=== PATIENT | male | born 1980 | race Caucasian/White ===

== ENCOUNTER → 2018-03-02 12:36 | Outpatient (CLI) | payer OTHER, SELFPAY ==
--- NOTE | 2018-03-02 | DI.US.S_ITS ---
PROCEDURE: US ABDOMEN COMPLETE INDICATIONS: Abdominal pain TECHNIQUE: Real-time scanning was performed of the abdominal and retroperitoneal organs, with image documentation. COMPARISON: None. FINDINGS: Liver: The liver is measuring up in the upper limits of normal for size and demonstrates moderately increased echogenicity when compared to the right kidney. This does result in difficulty evaluating the liver for deep liver lesions. No large liver lesion is identified. Gallbladder: The gallbladder is normal in size without cholelithiasis or surrounding inflammation. Biliary ducts: Intrahepatic bile ducts are non-dilated. Extrahepatic bile duct caliber measures 5 mm. Normal is 6-7 mm or less in diameter, or 10 mm or less post-cholecystectomy. Pancreas: The pancreas is obscured by overlying bowel gas. Spleen: The spleen is mildly enlarged at 12.1 cm in length. No focal splenic lesions are evident. Kidneys: Kidneys are normal in size and echotexture. Right kidney measures 11.1 cm long; left kidney measures 12.1 cm long. No hydronephrosis or nephrolithiasis. No solid masses. Aorta: Visualized aorta is normal in caliber at less than 3 cm. the proximal aorta is obscured by overlying bowel gas. Iliacs: Obscured by bowel gas. IVC: Obscured by bowel gas. Miscellaneous: No free abdominal fluid. IMPRESSION: 1. Borderline hepatosplenomegaly. No ascites. 2. Hepatic steatosis is suspected. Clinical correlation to exclude other chronic liver diseases is recommended. 3. No cholelithiasis. Dictated by: Brandt Koch M.D. on 03/02/2018 at 14:28 Approved by: Brandt Koch M.D. on 03/02/2018 at 14:30
== END ==
PROVIDERS: PCP Family Medicine; Visit Provider Family Medicine
DX: R10.9 Unspecified abdominal pain (principal)
CPT/HCPCS: 76700

== ENCOUNTER 2018-07-05 07:13 | Day surgery (SDC) | payer OTHER, SELFPAY ==
[2018-07-05] VITALS (11 sets, daily range): BP systolic 106–149; BP diastolic 60–99; PULSE 94–116; RESP 10–20; TEMP 36.1–36.6; O2SAT 95–97; BMI 28.6
--- NOTE | 2018-07-05 | PATH_ITS ---
[facility] Accession Number: [id number] . 01 Material submitted: . PART A: ANTRAL BIOPSIES PART B: RANDOM COLON BIOPSIES . 01 Diagnosis: A. Antrum, Biopsies: Gastric antral mucosa with mild chronic gastritis. Negative for Helicobacter organisms by immunohistochemistry. Negative for intestinal metaplasia, dysplasia or malignancy. . B. Random Colon, Biopsies: Colonic mucosa with no diagnostic abnormality. Negative for active or microscopic colitis. Negative for granulomata, dysplasia or malignancy. MRV/07/09/2018 . 01 Electronically signed: . Gee Thomas MD, PhD, Pathologist NPI- [id number] . 01 Gross description: . Part A: ANTRAL BIOPSIES: Received in formalin are multiple fragment(s) of k[place], soft tissue measuring 0.6 x 0.5 x 0.2 cm in aggregate submitted entirely in 1 cassette(s) Part B: RANDOM COLON BIOPSIES: Received in formalin are multiple fragment(s) of k[place], soft tissue measuring 1.9 x 0.6 x 0.2 cm in aggregate submitted entirely in 1 cassette(s) /CKI /CKI . 01 Microscopic: . A. An immunohistochemical stain was performed to evaluate for Helicobacter organisms and is negative. The control stain showed appropriate reactivity. . * This test was developed and its performance characteristics determined by [facility]. It has not been cleared or approved by the U.S. Food and Drug Administration. The FDA has determined that such clearance or approval is not necessary. This test is used for clinical purposes. It should not be regarded as investigational or for research. . 01 Pathologist provided ICD-10: K29.70, R19.4 . 01 CPT . 747273, 494199, W84788 Specimen Comment: A duplicate report has been generated due to demographic updates. Performed at: 01 [facility] [address] [facility], [place], [place] [id number] MD Shiv Rivera MD Phone: [phone]
[2018-07-05] MEDS: SODIUM CHLORIDE 0.9% 1,000 ML 200 ML IV ×3 (07:53→10:00)
--- NOTE | 2018-07-05 08:24 | PM.PREOP ---
Pre-operative Note Interval Note Pre-op Check: Yes History & Physical Reviewed by Physician and Yes Exam Performed Changes: No H&P completed within 30 days and has changed as indicated here:: Patient seen and examined. History and physical examination as documented on the chart from last week has not changed. Proceed with EGD and colonoscopy today as planned. ASA Class (for procedural sedation): I
[2018-07-05] MEDS: LIDOCAINE 4% SOLN 50 ML 20 ML TOP (08:43)
[2018-07-05] MEDS: TETRACAINE/BENZOCAINE/BUTAMBEN (CETACAINE) BOTTLE 1 SPRAY TOP (08:44)
[2018-07-05] MEDS: MIDAZOLAM 5 MG/5 ML VIAL IV (08:50)
[2018-07-05] MEDS: fentaNYL 250 MCG/5 ML INJ IV (08:51)
--- NOTE | 2018-07-05 08:58 | PM.OP.ENDO ---
Operative Date/Time/Diagnoses Date of procedure: 07/05/18 Time of procedure: 08:58 Pre-op diagnosis: Abdominal pain Post-op diagnosis: same (Normal upper and lower endoscopy) Procedure & Clinicians Study performed: 1. Sedation per surgeon 2. Esophagogastroduodenoscopy with cold forceps biopsy 3. Colonoscopy with cold forceps biopsy Same procedure as scheduled: Yes Indications: 38-year-old male with intermittent abdominal pain of unclear etiology. He was recommended to undergo EGD and colonoscopy. Surgeon: Aris Morris Procedure Notes SCOAP/Timeout: Yes Procedure in detail: After obtaining informed consent, the patient was brought to the GI suite and placed in the left lateral decubitus position on the examination table. After placement of appropriate monitors, the patient was given incremental doses of Versed and Fentanyl until an appropriate level of sedation was achieved. A time out was held per SCOAP protocol. A bite block was gently placed between the patient's teeth. The endoscope was lubricated and then passed into the patient's posterior oropharynx. The esophagus was cannulated under direct vision and the scope was passed to the second portion of the duodenum without difficulty. The scope was then withdrawn with careful examination of all areas of the upper GI tract and mucosa. In the stomach, the instrument was retroflexed and the GE junction examined. Z-line was 44 cm from the incisors. The scope was straightened and the procedure continued with examination of the remainder of the upper GI tract. Findings are noted above. Air was aspirated from the stomach and the endoscope gently removed from the esophagus. Patient was turned 180? for colonoscopy. A digital rectal examination was performed and did not reveal any masses or obstructing lesions. The colonoscope was gently passed into the patient's anus and the entire colon navigated to the level of the cecum with minimal difficulty. Bowel preparation was good. Terminal ileum was intubated and noted to be grossly normal. Once in the cecum, the scope was withdrawn being sure to go before and beyond all mucosal folds and prominences and get an excellent examination. The findings are noted above. At the level of the rectal vault, the scope was retroflexed and the internal anal canal was examined. The scope was straightened and air aspirated from the colon. The instrument was removed from the patient's body and the procedure was concluded. The patient was allowed to awaken from sedation without difficulty and taken to the post-anesthesia care unit in good condition. Scope withdrawal time: 8:28 min Sedation minutes: 23 Findings: other findings (Normal upper gastrointestinal tract and normal colon and rectum.) Specimen(s): other (1. Antral biopsies 2. Random colon biopsies) Complications: none Recommendations: High fiber diet, Continue medication(s) and Other recommendation (Follow-up colonoscopy at age 49) Plan for aftercare: 1. Discharge to home 2. Follow up in surgery Clinic in 2 weeks Follow up: weeks (Two weeks with Dr. Morris) Disposition: PACU
[2018-07-05] MEDS: ONDANSETRON 8 MG in SODIUM CHLORIDE 0.9% 50 ML 216 ML IV (10:00)
== END 2018-07-05 11:05 | disposition home or self-care (01) ==
PROVIDERS: PCP Family Medicine; Visit Provider Surgery
PROC: 0DJ08ZZ Inspection of Upper Intestinal Tract, Via Natural or Artificial Opening Endoscopic (ICD-10-PCS; CPT 43235; principal; 2018-07-05 08:45)
PROC: 0DJD8ZZ Inspection of Lower Intestinal Tract, Via Natural or Artificial Opening Endoscopic (ICD-10-PCS; CPT 45378; 2018-07-05 08:45)
DX: K29.70 Gastritis, unspecified, without bleeding (principal)
CPT/HCPCS: 45380; 43239; 99152; J2250; J2405; J3010

== ENCOUNTER → 2018-12-01 07:42 | Outpatient (CLI) | payer OTHER, SELFPAY ==
--- NOTE | 2018-12-01 | DI.US.S_ITS ---
PROCEDURE: US ABDOMEN COMPLETE INDICATIONS: FATTY LIVER DISEASE TECHNIQUE: Real-time scanning was performed of the abdominal and retroperitoneal organs, with image documentation. COMPARISON: [facility], US, US ABDOMEN COMPLETE, 03/02/2018, 13:10. FINDINGS: Liver: There is diffuse increased echogenicity of the liver consistent with hepatic steatosis. There are multiple ill-defined relatively hypoechoic areas, the largest of which is adjacent to the gallbladder, measuring 3.7 x 2.1 x 1.9 cm. These may represent areas of focal fatty sparing. However, multiphase liver CT is suggested. Gallbladder: Is unremarkable Biliary ducts: Intrahepatic bile ducts are non-dilated. Extrahepatic bile duct caliber measures 3.0 mm. Normal is 6-7 mm or less in diameter, or 10 mm or less post-cholecystectomy. Pancreas: Visualized portions of the pancreas are sonographically normal. Spleen: Spleen is normal in size and homogeneous in echotexture. Kidneys: Kidneys are normal in size and echotexture. Right kidney measures 10.6 cm long; left kidney measures 1.0 cm long. No hydronephrosis or nephrolithiasis. No solid masses. Aorta: Visualized aorta is normal in caliber at less than 3 cm. Iliacs: Proximal common iliac arteries are normal in caliber at less than 2.5 cm. IVC: Intrahepatic inferior vena cava is patent. Miscellaneous: No free abdominal fluid. IMPRESSION: 1. Hepatic steatosis. 2. Multiple relatively hypoechoic areas in the liver may represent areas of focal fatty sparing. The largest such area measures 3.7 x 2.1 x 1.[address] liver protocol [address] to exclude masses. Dictated by: Wai Gamboa M.D. on 12/01/2018 at 8:43 Approved by: Wai Gamboa M.D. on 12/01/2018 at 8:47
== END ==
PROVIDERS: PCP Family Medicine; Visit Provider Family Medicine
DX: K76.0 Fatty (change of) liver, not elsewhere classified (principal)
CPT/HCPCS: 76700

== ENCOUNTER → 2018-12-17 06:48 | Outpatient (CLI) | payer OTHER, SELFPAY ==
--- NOTE | 2018-12-17 07:09 | DI.CT.S_ITS ---
PROCEDURE: CT ABDOMEN WO/W CON INDICATIONS: abdominal pain, diarrhea, hepatosplenomegaly, possible hepatic lesions on ultrasound. TECHNIQUE: 4 phase scanning was performed. Non-contrast 5 mm axial sections acquired from the diaphragm to the iliac crests. Following the administration of intravenous contrast, 5 mm thick arterial-phase, portal venous-phase, and 5-minute delayed phase images were acquired through the liver. 5 mm thick coronal and sagittal reformats were performed. For radiation dose reduction, the following was used: automated exposure control, adjustment of mA and/or kV according to patient size. COMPARISON: [facility], US, US ABDOMEN COMPLETE, 12/01/2018, 7:58. FINDINGS: Image quality: Excellent. Lung bases: There is minimal dependent atelectasis. Heart size is normal. Liver: There is a small hypodense focus within the inferior right hepatic lobe in segment 6 measuring approximately 0.5 cm without definite corresponding enhancement likely representing a cyst. Elsewhere, no discrete hepatic mass identified. No suspicious areas of enhancement or abnormal washout. There is mild heterogeneity of the hepatic parenchyma in the right hepatic lobe likely representing heterogeneous fatty infiltration. Other solid organs: Gallbladder appears within normal limits without calcified gallstones. Biliary system is non dilated. Pancreas is normal in morphology. Spleen is at the upper limits of normal in size measuring up to 13.5 cm. No adrenal nodules. Both kidneys demonstrate normal size and enhancement, without hydronephrosis or nephrolithiasis. Nodes and vessels: No retroperitoneal or mesenteric adenopathy by size criteria. Aorta and inferior vena cava are normal in size. Bowel and peritoneum: Visualized bowel loops are normal in caliber. There is colonic diverticulosis without acute diverticulitis. No free fluid or air. Bones: No suspicious bony lesions. No vertebral body compression fractures. Miscellaneous: No ventral hernias. IMPRESSION: 1. No discrete hepatic mass or suspicious enhancement to suggest hepatoma. 2. Mild heterogeneous enhancement of the liver suggestive of heterogeneous fatty infiltration. Dictated by: Shiv Watson M.D. on 12/17/2018 at 15:33 Approved by: Shiv Watson M.D. on 12/17/2018 at 15:40
== END ==
PROVIDERS: PCP Family Medicine; Visit Provider Family Medicine
DX: R16.2 Hepatomegaly with splenomegaly, not elsewhere classified (principal); R10.9 Unspecified abdominal pain; R19.7 Diarrhea, unspecified; K57.90 Diverticulosis of intestine, part unspecified, without perforation or abscess without bleeding
CPT/HCPCS: 74170; Q9967

== ENCOUNTER 2018-12-24 13:45 | Outpatient (RCR) | payer OTHER, SELFPAY ==
--- NOTE | 2018-09-27 16:14 | PT.OIE ---
Current Diagnoses Benign paroxysmal vertigo, bilateral (09/27/18) Pain in left shoulder (09/27/18) Pain in unspecified shoulder (09/27/18) Past Medical History (Last Reviewed 07/01/18 @ 10:21 by Aris Morris MD) Allergic rhinitis (Acute) Deviated septum (Acute) History of tonsillitis (Acute) Deviated septum (Resolved) Tonsillitis (Resolved) Past Surgical History (Last Reviewed 03/25/18 @ 10:49 by Aris Morris MD) History of nasal septoplasty (Acute) History of tonsillectomy (Acute) History of vasectomy (Acute) Provider Visit Care Team Role Provider Type Ashley Arceo MD Attending Provider Physician Primary Care Provider Specialty: Family Practice Address: [address] [place] [address], [facility] Email: Physical Therapy Initial Evaluation PT-OP-A Visit Information Start: 09/27/18 07:32 Freq: Status: Active Protocol: Document 09/27/18 11:15 AMB (Rec: 09/27/18 15:35 AMB [email or web address]) Out-Patient Physical Therapy Visit Information Visit Information Visit Type Initial Evaluation Visit Start Time 11:15 Visit Stop Time 12:00 Total Visit Minutes 45 Visit Number 1 PT-OP-B Current Condition Start: 09/27/18 07:32 Freq: Status: Active Protocol: Document 09/27/18 11:15 AMB (Rec: 09/27/18 15:35 AMB [email or web address]) Current Condition History of Current Condition Onset Date 6 months ago Current Complaints Dizziness and L shoulder/ scapular pain History of Current Condition José Miguel attends physical therapy with chronic dizziness worse in the last 6 months. He notes that looking down, blowing his nose and sinus pressure all increase his symptoms. He does report L ear fullness/pressure, and chronic sinus issues with a recent cold, but the ear pressure was before that. He is also concerned about his chronic L shoulder pain. He reports 15 years ago he was moving a big screen TV down stairs and it fell out of the other person's hands and he caught it and his shoulder has been a problem. Prior Functional Status Baseline Function- ADL's Independent Baseline Function- Mobility Independent Current Functional Impairments (Reported) Functional Limitations- ADL's Difficulty with overhead lifting with L arm. Careful picking up his children due to looking/bending down. Personal Factors Other Personal Factors That May Effect Back pain, headaches, history Therapy/Recovery of tonsil and septum surgery. PT-OP-C Subjective Start: 09/27/18 07:32 Freq: Status: Active Protocol: Document 09/27/18 11:15 AMB (Rec: 09/27/18 15:35 AMB [email or web address]) Patient Questionnaires ABC- Activity Specific Balance Confidence Scale ABC Score 92 ABC Functional Impairment 1 to <20% Impaired (Score 81- 99) Dizziness Handicap Inventory DHI Score 14 DHI Functional Impairment 1 to 19% Impaired (Score 1-19) OP-PT Pain Assessment Location Left Shoulder Pain Location Details scapula Intensity 1 Scale Used Numeric (1 - 10) Other Pain Aggravating Factors 6/10 at worst PT-OP-D Balance Start: 09/27/18 07:32 Freq: Status: Active Protocol: Document 09/27/18 15:36 AMB (Rec: 09/27/18 15:49 AMB [email or web address]) Balance Tests Single Limb Standing Single Limb- Right 5 sec Single Limb- Left 10 sec PT-OP-J Posture/Palpation/Skin Start: 09/27/18 07:32 Freq: Status: Active Protocol: Document 09/27/18 15:36 AMB (Rec: 09/27/18 15:49 AMB [email or web address]) Posture Evaluation Comments Posture Comments Forward head, forward shoulder posture Palpation Assessment Location One Palpation Location L shoulder Palpation Findings Tenderness Palpation Details No tenderness at biceps tendon or lateral point of shoulder, tenderness at muscle belly of rhomboids and supraspinatus PT-OP-K Range of Motion Start: 09/27/18 07:32 Freq: Status: Active Protocol: Document 09/27/18 15:36 AMB (Rec: 09/27/18 15:49 AMB [email or web address]) Shoulder Goniometric Range of Motion Shoulder Measured in Degrees Right Active Flexion 155 Internal Rotation Behind Back (text) t12 Left Active Flexion 140 Internal Rotation Behind Back (text) cramping to T12 PT-OP-L Special Tests Start: 09/27/18 16:13 Freq: Status: Active Protocol: Document 09/27/18 11:15 AMB (Rec: 09/27/18 16:13 AMB [email or web address]) Special Tests Shoulder Special Tests Neer Impingement Test Results negative bilaterally Malin Neftaly Impingement Test Results mild positive on left PT-OP-M Strength Start: 09/27/18 07:32 Freq: Status: Active Protocol: Document 09/27/18 15:36 AMB (Rec: 09/27/18 15:49 AMB [email or web address]) Shoulder Strength Shoulder Manual Muscle Testing Right Flexion 5 Normal Extension 5 Normal Abduction (C5) 5 Normal External Rotation 5 Normal Internal Rotation 5 Normal Left Flexion 5 Normal Extension 5 Normal Abduction (C5) 4 Good External Rotation 4 Good Internal Rotation 5 Normal PT-OP-O Vestibular Start: 09/27/18 07:32 Freq: Status: Active Protocol: Document 09/27/18 11:15 AMB (Rec: 09/27/18 15:52 AMB [email or web address]) Vestibular Assessment Visual Testing Smooth Pursuits Horizontal WNL Smooth Pursuits Vertical WNL Gaze Evoked Nystagmus With Fixation Negative Thrust Head Positive Left DVA (Line Degradation) 2 Vestibulo-Ocular Reflex (VOR1) Positive Positional Testing Kerry-Hallpike Negative Left Negative Right Comments Vestibular Comments Pt reports self treatment with what sounds like the Hola years ago which was helpful. Reports sensitivity to light but not necessarily sound. PT-OP-Q Treatments Start: 09/27/18 07:32 Freq: Status: Active Protocol: Document 09/27/18 15:36 AMB (Rec: 09/27/18 15:49 AMB [email or web address]) Therapeutic Exercises Standing Exercises 1 Standing Exercise Name shoulder ER Side left Equipment Used #4 t band Reps/Minutes 1x10 PT-OP-T Assessment and Plan Start: 09/27/18 07:32 Freq: Status: Active Protocol: Document 09/27/18 11:15 AMB (Rec: 09/27/18 16:12 AMB [email or web address]) Physical Therapy Assessment Rehab Potential Rehabilitation Potential Good Evaluation Complexity Number of Personal Factors/Comorbidities 1-2 Number of Body Systems Impaired 4 or More Clinical Presentation at Evaluation Evolving Impairments Impairments Pain Posture ROM Strength Vestibular Goals Two Impairment Dizziness Short Term Goal (STG) The patient will walk with vertical head turns without symptoms. STG Duration 6 weeks Senior Living Goal (LTG) The patient will turn his head quickly without symptoms. LTG Duration 12 weeks One Impairment Shoulder AROM Short Term Goal (STG) The patient will increase his flexion AROM on the L to 150 degrees. STG Duration 6 weeks Arborist Representative Goal (LTG) The patient will reach behind his back without shoulder/ scapular pain. LTG Duration 12 weeks Assessment Summary Assessment The patient attends physical therapy with chronic dizziness and chronic left scapular pain. At this time he did not show any signs of BPPV. He does have a distant history of concussion, but symptoms started at least 20 years after his concussion. He notices the most symptoms with blowing his nose and looking down, but also had positive head impulse test to the left (indicative of vestibular weakness on the left). So we will do more testing to see if pt shows symptoms with valsalva in the clinic (which would possibly suggest fistula ). Pt also showed signs of weakness at supraspinatus with mild impingement and tenderness at the left scapula . He likely injured his supraspinatus tendon when he caught the big screen TV 15 years ago and it is only partially healed. He will benefit both from vestibular rehab and shoulder rehab. Physical Therapy Plan Frequency and Duration Frequency of Treatment 1x/Week Duration of Treatment 12 weeks Plan of Care Start Date 09/27/18 Plan of Care End Date 12/20/18 Therapeutic Interventions Therapeutic Interventions Home Exercise Program Joint Mobilizations Manual Therapy Neuromuscular Re-education Self-Care/Home Management Therapeutic Activities Therapeutic Exercises Vestibular Rehabilitation Modalities Cold Pack/Ice Massage Electric Stimulation Hot Packs Ultrasound Next Visit Focus/Plan Next Note Type Treatment Note
--- NOTE | 2018-09-27 16:15 | PT.OPPOC ---
Current Diagnoses Benign paroxysmal vertigo, bilateral (09/27/18) Pain in left shoulder (09/27/18) Pain in unspecified shoulder (09/27/18) Provider Visit Care Team Role Provider Type Ashley Arceo MD Attending Provider Physician Primary Care Provider Specialty: Family Practice Address: [address] [place] [address], [id number] Email: Plan Of Care PT-OP-T Assessment and Plan Start: 09/27/18 07:32 Freq: Status: Active Protocol: Document 09/27/18 11:15 AMB (Rec: 09/27/18 16:12 AMB [email or web address]) Physical Therapy Assessment Rehab Potential Rehabilitation Potential Good Evaluation Complexity Number of Personal Factors/Comorbidities 1-2 Number of Body Systems Impaired 4 or More Clinical Presentation at Evaluation Evolving Impairments Impairments Pain Posture ROM Strength Vestibular Goals Two Impairment Dizziness Short Term Goal (STG) The patient will walk with vertical head turns without symptoms. STG Duration 6 weeks Assistant [employer] Delivery Goal (LTG) The patient will turn his head quickly without symptoms. LTG Duration 12 weeks One Impairment Shoulder AROM Short Term Goal (STG) The patient will increase his flexion AROM on the L to 150 degrees. STG Duration 6 weeks Assistant [employer] Goal (LTG) The patient will reach behind his back without shoulder/ scapular pain. LTG Duration 12 weeks Assessment Summary Assessment The patient attends physical therapy with chronic dizziness and chronic left scapular pain. At this time he did not show any signs of BPPV. He does have a distant history of concussion, but symptoms started at least 20 years after his concussion. He notices the most symptoms with blowing his nose and looking down, but also had positive head impulse test to the left (indicative of vestibular weakness on the left). So we will do more testing to see if pt shows symptoms with valsalva in the clinic (which would possibly suggest fistula ). Pt also showed signs of weakness at supraspinatus with mild impingement and tenderness at the left scapula . He likely injured his supraspinatus tendon when he caught the big screen TV 15 years ago and it is only partially healed. He will benefit both from vestibular rehab and shoulder rehab. Physical Therapy Plan Frequency and Duration Frequency of Treatment 1x/Week Duration of Treatment 12 weeks Plan of Care Start Date 09/27/18 Plan of Care End Date 12/20/18 Therapeutic Interventions Therapeutic Interventions Home Exercise Program Joint Mobilizations Manual Therapy Neuromuscular Re-education Self-Care/Home Management Therapeutic Activities Therapeutic Exercises Vestibular Rehabilitation Modalities Cold Pack/Ice Massage Electric Stimulation Hot Packs Ultrasound Next Visit Focus/Plan Next Note Type Treatment Note Plan of Care Dates Plan of Care Start Date 09/27/18 Plan of Care End Date 12/20/18 Please Sign and Return: I have reviewed this Plan of Care and certify that the skilled therapy services above are required to meet the patient?s needs. Physician Signature Date Printed Name and Credentials Clinical Instructor Signature Printed Name and Credentials
--- NOTE | 2018-10-04 15:53 | PT.OTN ---
Current Diagnoses Benign paroxysmal vertigo, bilateral (10/04/18) Pain in left shoulder (10/04/18) Pain in unspecified shoulder (10/04/18) Physical Therapy Treatment Note PT-OP-A Visit Information Start: 09/27/18 07:32 Freq: Status: Active Protocol: Document 10/04/18 14:30 AMB (Rec: 10/04/18 15:53 AMB [email or web address]) Out-Patient Physical Therapy Visit Information Visit Information Visit Type Treatment Note Visit Start Time 14:30 Visit Stop Time 15:15 Total Visit Minutes 45 Visit Number 2 PT-OP-B Current Condition Start: 09/27/18 07:32 Freq: Status: Active Protocol: Document 09/27/18 11:15 AMB (Rec: 09/27/18 15:35 AMB [email or web address]) Current Condition History of Current Condition Onset Date 6 months ago Current Complaints Dizziness and L shoulder/ scapular pain History of Current Condition José Miguel attends physical therapy with chronic dizziness worse in the last 6 months. He notes that looking down, blowing his nose and sinus pressure all increase his symptoms. He does report L ear fullness/pressure, and chronic sinus issues with a recent cold, but the ear pressure was before that. He is also concerned about his chronic L shoulder pain. He reports 15 years ago he was moving a big screen TV down stairs and it fell out of the other person's hands and he caught it and his shoulder has been a problem. Prior Functional Status Baseline Function- ADL's Independent Baseline Function- Mobility Independent Current Functional Impairments (Reported) Functional Limitations- ADL's Difficulty with overhead lifting with L arm. Careful picking up his children due to looking/bending down. Personal Factors Other Personal Factors That May Effect Back pain, headaches, history Therapy/Recovery of tonsil and septum surgery. PT-OP-C Subjective Start: 09/27/18 07:32 Freq: Status: Active Protocol: Document 10/04/18 14:30 AMB (Rec: 10/04/18 15:53 AMB [email or web address]) OP-PT Subjective Patient Comments Patient Comments Pt states ER theraband exercise is going well. Dizziness is a bit increased today. PT-OP-D Balance Start: 09/27/18 07:32 Freq: Status: Active Protocol: Document 09/27/18 15:36 AMB (Rec: 09/27/18 15:49 AMB [email or web address]) Balance Tests Single Limb Standing Single Limb- Right 5 sec Single Limb- Left 10 sec PT-OP-J Posture/Palpation/Skin Start: 09/27/18 07:32 Freq: Status: Active Protocol: Document 09/27/18 15:36 AMB (Rec: 09/27/18 15:49 AMB [email or web address]) Posture Evaluation Comments Posture Comments Forward head, forward shoulder posture Palpation Assessment Location One Palpation Location L shoulder Palpation Findings Tenderness Palpation Details No tenderness at biceps tendon or lateral point of shoulder, tenderness at muscle belly of rhomboids and supraspinatus PT-OP-K Range of Motion Start: 09/27/18 07:32 Freq: Status: Active Protocol: Document 09/27/18 15:36 AMB (Rec: 09/27/18 15:49 AMB [email or web address]) Shoulder Goniometric Range of Motion Shoulder Measured in Degrees Right Active Flexion 155 Internal Rotation Behind Back (text) t12 Left Active Flexion 140 Internal Rotation Behind Back (text) cramping to T12 PT-OP-L Special Tests Start: 09/27/18 16:13 Freq: Status: Active Protocol: Document 09/27/18 11:15 AMB (Rec: 09/27/18 16:13 AMB [email or web address]) Special Tests Shoulder Special Tests Neer Impingement Test Results negative bilaterally Malin Neftaly Impingement Test Results mild positive on left PT-OP-M Strength Start: 09/27/18 07:32 Freq: Status: Active Protocol: Document 09/27/18 15:36 AMB (Rec: 09/27/18 15:49 AMB [email or web address]) Shoulder Strength Shoulder Manual Muscle Testing Right Flexion 5 Normal Extension 5 Normal Abduction (C5) 5 Normal External Rotation 5 Normal Internal Rotation 5 Normal Left Flexion 5 Normal Extension 5 Normal Abduction (C5) 4 Good External Rotation 4 Good Internal Rotation 5 Normal PT-OP-O Vestibular Start: 09/27/18 07:32 Freq: Status: Active Protocol: Document 09/27/18 11:15 AMB (Rec: 09/27/18 15:52 AMB [email or web address]) Vestibular Assessment Visual Testing Smooth Pursuits Horizontal WNL Smooth Pursuits Vertical WNL Gaze Evoked Nystagmus With Fixation Negative Thrust Head Positive Left DVA (Line Degradation) 2 Vestibulo-Ocular Reflex (VOR1) Positive Positional Testing Kerry-Hallpike Negative Left Negative Right Comments Vestibular Comments Pt reports self treatment with what sounds like the Hola years ago which was helpful. Reports sensitivity to light but not necessarily sound. PT-OP-Q Treatments Start: 09/27/18 07:32 Freq: Status: Active Protocol: Document 10/04/18 14:30 AMB (Rec: 10/04/18 15:53 AMB [email or web address]) Therapeutic Exercises Standing Exercises 2 Standing Exercise Name doorway stretch Reps/Minutes 30x2 Manual Therapy Treatment Soft Tissue Mobilization 1 Body Location neck Mobilization Type Myofascial Release Comments suboccipitals, L paraspinals Manual Traction Cervical Body Position Hooklying Neuro Re-Education Treatment Balance Activities 1 Details 3-step bow c HT Comments no increased dizziness Vestibular Rehabilitation VOR Retraining Details up/down Comments semi tandem PT-OP-T Assessment and Plan Start: 09/27/18 07:32 Freq: Status: Active Protocol: Document 10/04/18 14:30 AMB (Rec: 10/04/18 15:53 AMB [email or web address]) Physical Therapy Assessment Assessment Summary Assessment Pt does have a worsening of sx with altitude change (plane rides), but no symptoms today with blowing his nose/ valsalva. Looking up/down continues to be more sx than side to side. Did feel sx were better after manual therapy. Physical Therapy Plan Next Visit Focus/Plan Next Note Type Treatment Note Next Visit Plan Reassess possible cervical component- more L sided sx on L ear/ L neck to shoulder/ dizziness.
--- NOTE | 2018-10-14 09:01 | PT.OTN ---
Current Diagnoses Benign paroxysmal vertigo, bilateral (10/13/18) Pain in left shoulder (10/13/18) Pain in unspecified shoulder (10/13/18) Physical Therapy Treatment Note PT-OP-A Visit Information Start: 09/27/18 07:32 Freq: Status: Active Protocol: Document 10/13/18 13:45 AMB (Rec: 10/14/18 09:00 AMB [email or web address]) Out-Patient Physical Therapy Visit Information Visit Information Visit Type Treatment Note Visit Start Time 13:45 Visit Stop Time 14:30 Total Visit Minutes 45 Visit Number 3 PT-OP-B Current Condition Start: 09/27/18 07:32 Freq: Status: Active Protocol: Document 09/27/18 11:15 AMB (Rec: 09/27/18 15:35 AMB [email or web address]) Current Condition History of Current Condition Onset Date 6 months ago Current Complaints Dizziness and L shoulder/ scapular pain History of Current Condition José Miguel attends physical therapy with chronic dizziness worse in the last 6 months. He notes that looking down, blowing his nose and sinus pressure all increase his symptoms. He does report L ear fullness/pressure, and chronic sinus issues with a recent cold, but the ear pressure was before that. He is also concerned about his chronic L shoulder pain. He reports 15 years ago he was moving a big screen TV down stairs and it fell out of the other person's hands and he caught it and his shoulder has been a problem. Prior Functional Status Baseline Function- ADL's Independent Baseline Function- Mobility Independent Current Functional Impairments (Reported) Functional Limitations- ADL's Difficulty with overhead lifting with L arm. Careful picking up his children due to looking/bending down. Personal Factors Other Personal Factors That May Effect Back pain, headaches, history Therapy/Recovery of tonsil and septum surgery. PT-OP-C Subjective Start: 09/27/18 07:32 Freq: Status: Active Protocol: Document 10/13/18 13:45 AMB (Rec: 10/14/18 09:00 AMB [email or web address]) OP-PT Subjective Patient Comments Patient Comments Pt states he felt good for the last week after PT. He did get a headache after treatment but it wasn't bad. Today he woke up with more pressure, so he is feeling more symptoms today. PT-OP-D Balance Start: 09/27/18 07:32 Freq: Status: Active Protocol: Document 09/27/18 15:36 AMB (Rec: 09/27/18 15:49 AMB [email or web address]) Balance Tests Single Limb Standing Single Limb- Right 5 sec Single Limb- Left 10 sec PT-OP-J Posture/Palpation/Skin Start: 09/27/18 07:32 Freq: Status: Active Protocol: Document 09/27/18 15:36 AMB (Rec: 09/27/18 15:49 AMB [email or web address]) Posture Evaluation Comments Posture Comments Forward head, forward shoulder posture Palpation Assessment Location One Palpation Location L shoulder Palpation Findings Tenderness Palpation Details No tenderness at biceps tendon or lateral point of shoulder, tenderness at muscle belly of rhomboids and supraspinatus PT-OP-K Range of Motion Start: 09/27/18 07:32 Freq: Status: Active Protocol: Document 09/27/18 15:36 AMB (Rec: 09/27/18 15:49 AMB [email or web address]) Shoulder Goniometric Range of Motion Shoulder Measured in Degrees Right Active Flexion 155 Internal Rotation Behind Back (text) t12 Left Active Flexion 140 Internal Rotation Behind Back (text) cramping to T12 PT-OP-L Special Tests Start: 09/27/18 16:13 Freq: Status: Active Protocol: Document 09/27/18 11:15 AMB (Rec: 09/27/18 16:13 AMB [email or web address]) Special Tests Shoulder Special Tests Neer Impingement Test Results negative bilaterally Malin Neftaly Impingement Test Results mild positive on left PT-OP-M Strength Start: 09/27/18 07:32 Freq: Status: Active Protocol: Document 09/27/18 15:36 AMB (Rec: 09/27/18 15:49 AMB [email or web address]) Shoulder Strength Shoulder Manual Muscle Testing Right Flexion 5 Normal Extension 5 Normal Abduction (C5) 5 Normal External Rotation 5 Normal Internal Rotation 5 Normal Left Flexion 5 Normal Extension 5 Normal Abduction (C5) 4 Good External Rotation 4 Good Internal Rotation 5 Normal PT-OP-O Vestibular Start: 09/27/18 07:32 Freq: Status: Active Protocol: Document 09/27/18 11:15 AMB (Rec: 09/27/18 15:52 AMB [email or web address]) Vestibular Assessment Visual Testing Smooth Pursuits Horizontal WNL Smooth Pursuits Vertical WNL Gaze Evoked Nystagmus With Fixation Negative Thrust Head Positive Left DVA (Line Degradation) 2 Vestibulo-Ocular Reflex (VOR1) Positive Positional Testing Kerry-Hallpike Negative Left Negative Right Comments Vestibular Comments Pt reports self treatment with what sounds like the Hola years ago which was helpful. Reports sensitivity to light but not necessarily sound. PT-OP-Q Treatments Start: 09/27/18 07:32 Freq: Status: Active Protocol: Document 10/13/18 13:45 AMB (Rec: 10/14/18 09:00 AMB [email or web address]) Therapeutic Exercises Prone Exercises 1 Prone Exercise Name prone Y Resistance AROM only Reps/Minutes 10 Standing Exercises 2 Standing Exercise Name doorway stretch Reps/Minutes 30x2 Manual Therapy Treatment Soft Tissue Mobilization 1 Body Location neck Mobilization Type Myofascial Release Comments suboccipitals, L paraspinals Manual Traction Cervical Body Position Hooklying Neuro Re-Education Treatment Vestibular Rehabilitation Targets Details with laser pointer Comments undershooting with R, up, down . Overshooting with L. Repeatable. VOR Retraining Details up/down Comments semi tandem PT-OP-T Assessment and Plan Start: 09/27/18 07:32 Freq: Status: Active Protocol: Document 10/13/18 13:45 AMB (Rec: 10/14/18 09:00 AMB [email or web address]) Physical Therapy Assessment Assessment Summary Assessment Pt notices improvement in sx for about a week after last treatment session. Continues to have L sided cervical sx. Physical Therapy Plan Next Visit Focus/Plan Next Note Type Treatment Note Next Visit Plan Can try mechanical traction if pt continues to notice improvement.
--- NOTE | 2018-10-26 16:08 | PT.OTN ---
Current Diagnoses Benign paroxysmal vertigo, bilateral (10/26/18) Pain in left shoulder (10/26/18) Pain in unspecified shoulder (10/26/18) Physical Therapy Treatment Note PT-OP-A Visit Information Start: 09/27/18 07:32 Freq: Status: Active Protocol: Document 10/26/18 13:45 AMB (Rec: 10/26/18 14:30 AMB [email or web address]) Out-Patient Physical Therapy Visit Information Visit Information Visit Type Treatment Note Visit Start Time 13:45 Visit Stop Time 14:30 Total Visit Minutes 45 Visit Number 4 PT-OP-B Current Condition Start: 09/27/18 07:32 Freq: Status: Active Protocol: Document 09/27/18 11:15 AMB (Rec: 09/27/18 15:35 AMB [email or web address]) Current Condition History of Current Condition Onset Date 6 months ago Current Complaints Dizziness and L shoulder/ scapular pain History of Current Condition José Miguel attends physical therapy with chronic dizziness worse in the last 6 months. He notes that looking down, blowing his nose and sinus pressure all increase his symptoms. He does report L ear fullness/pressure, and chronic sinus issues with a recent cold, but the ear pressure was before that. He is also concerned about his chronic L shoulder pain. He reports 15 years ago he was moving a big screen TV down stairs and it fell out of the other person's hands and he caught it and his shoulder has been a problem. Prior Functional Status Baseline Function- ADL's Independent Baseline Function- Mobility Independent Current Functional Impairments (Reported) Functional Limitations- ADL's Difficulty with overhead lifting with L arm. Careful picking up his children due to looking/bending down. Personal Factors Other Personal Factors That May Effect Back pain, headaches, history Therapy/Recovery of tonsil and septum surgery. PT-OP-C Subjective Start: 09/27/18 07:32 Freq: Status: Active Protocol: Document 10/26/18 13:45 AMB (Rec: 10/26/18 14:30 AMB [id number]) OP-PT Subjective Patient Comments Patient Comments Pt reports he feels about 50% better than the beginning of PT. PT-OP-D Balance Start: 09/27/18 07:32 Freq: Status: Active Protocol: Document 09/27/18 15:36 AMB (Rec: 09/27/18 15:49 AMB [email or web address]) Balance Tests Single Limb Standing Single Limb- Right 5 sec Single Limb- Left 10 sec PT-OP-J Posture/Palpation/Skin Start: 09/27/18 07:32 Freq: Status: Active Protocol: Document 09/27/18 15:36 AMB (Rec: 09/27/18 15:49 AMB [email or web address]) Posture Evaluation Comments Posture Comments Forward head, forward shoulder posture Palpation Assessment Location One Palpation Location L shoulder Palpation Findings Tenderness Palpation Details No tenderness at biceps tendon or lateral point of shoulder, tenderness at muscle belly of rhomboids and supraspinatus PT-OP-K Range of Motion Start: 09/27/18 07:32 Freq: Status: Active Protocol: Document 09/27/18 15:36 AMB (Rec: 09/27/18 15:49 AMB [email or web address]) Shoulder Goniometric Range of Motion Shoulder Measured in Degrees Right Active Flexion 155 Internal Rotation Behind Back (text) t12 Left Active Flexion 140 Internal Rotation Behind Back (text) cramping to T12 PT-OP-L Special Tests Start: 09/27/18 16:13 Freq: Status: Active Protocol: Document 09/27/18 11:15 AMB (Rec: 09/27/18 16:13 AMB [email or web address]) Special Tests Shoulder Special Tests Neer Impingement Test Results negative bilaterally Malin Neftaly Impingement Test Results mild positive on left PT-OP-M Strength Start: 09/27/18 07:32 Freq: Status: Active Protocol: Document 09/27/18 15:36 AMB (Rec: 09/27/18 15:49 AMB [email or web address]) Shoulder Strength Shoulder Manual Muscle Testing Right Flexion 5 Normal Extension 5 Normal Abduction (C5) 5 Normal External Rotation 5 Normal Internal Rotation 5 Normal Left Flexion 5 Normal Extension 5 Normal Abduction (C5) 4 Good External Rotation 4 Good Internal Rotation 5 Normal PT-OP-O Vestibular Start: 09/27/18 07:32 Freq: Status: Active Protocol: Document 09/27/18 11:15 AMB (Rec: 09/27/18 15:52 AMB [email or web address]) Vestibular Assessment Visual Testing Smooth Pursuits Horizontal WNL Smooth Pursuits Vertical WNL Gaze Evoked Nystagmus With Fixation Negative Thrust Head Positive Left DVA (Line Degradation) 2 Vestibulo-Ocular Reflex (VOR1) Positive Positional Testing Kerry-Hallpike Negative Left Negative Right Comments Vestibular Comments Pt reports self treatment with what sounds like the Hola years ago which was helpful. Reports sensitivity to light but not necessarily sound. PT-OP-Q Treatments Start: 09/27/18 07:32 Freq: Status: Active Protocol: Document 10/26/18 13:45 AMB (Rec: 10/26/18 16:07 AMB [email or web address]) Neuro Re-Education Treatment Balance Activities 1 Details single leg stance- challenging Vestibular Rehabilitation VOR Retraining Details up/down Comments tried tandem, but pt said unable to do when he has a cold PT-OP-R Modalities Start: 09/27/18 07:32 Freq: Status: Active Protocol: Document 10/26/18 13:45 AMB (Rec: 10/26/18 16:08 AMB [email or web address]) Spinal Traction Traction Treatment Cervical Method Static Patient Position Hooklying Force Applied (Pounds) 15 PT-OP-T Assessment and Plan Start: 09/27/18 07:32 Freq: Status: Active Protocol: Document 10/26/18 13:45 AMB (Rec: 10/26/18 16:07 AMB [email or web address]) Physical Therapy Assessment Assessment Summary Assessment Pt has been using a lacrosse ball on his neck. [place] slightly lightheaded after getting up from traction, but overall felt better than when he came to the appointment. Physical Therapy Plan Next Visit Focus/Plan Next Note Type Treatment Note Next Visit Plan REassess pt after he travels via plane, usually a big trigger of dizziness for him
--- NOTE | 2018-11-10 10:25 | PT.OTN ---
Current Diagnoses Benign paroxysmal vertigo, bilateral (11/09/18) Pain in left shoulder (11/09/18) Pain in unspecified shoulder (11/09/18) Physical Therapy Treatment Note PT-OP-A Visit Information Start: 09/27/18 07:32 Freq: Status: Active Protocol: Document 11/09/18 13:45 AMB (Rec: 11/09/18 13:52 AMB [email or web address]) Out-Patient Physical Therapy Visit Information Visit Information Visit Type Treatment Note Visit Start Time 13:45 Visit Stop Time 14:30 Total Visit Minutes 45 Visit Number 5 PT-OP-B Current Condition Start: 09/27/18 07:32 Freq: Status: Active Protocol: Document 09/27/18 11:15 AMB (Rec: 09/27/18 15:35 AMB [email or web address]) Current Condition History of Current Condition Onset Date 6 months ago Current Complaints Dizziness and L shoulder/ scapular pain History of Current Condition José Miguel attends physical therapy with chronic dizziness worse in the last 6 months. He notes that looking down, blowing his nose and sinus pressure all increase his symptoms. He does report L ear fullness/pressure, and chronic sinus issues with a recent cold, but the ear pressure was before that. He is also concerned about his chronic L shoulder pain. He reports 15 years ago he was moving a big screen TV down stairs and it fell out of the other person's hands and he caught it and his shoulder has been a problem. Prior Functional Status Baseline Function- ADL's Independent Baseline Function- Mobility Independent Current Functional Impairments (Reported) Functional Limitations- ADL's Difficulty with overhead lifting with L arm. Careful picking up his children due to looking/bending down. Personal Factors Other Personal Factors That May Effect Back pain, headaches, history Therapy/Recovery of tonsil and septum surgery. PT-OP-C Subjective Start: 09/27/18 07:32 Freq: Status: Active Protocol: Document 11/09/18 13:45 AMB (Rec: 11/09/18 13:52 AMB [id number]) OP-PT Subjective Patient Comments Patient Comments The patient has returned from a plane trip, which felt good, and has historically been an issue. PT-OP-D Balance Start: 09/27/18 07:32 Freq: Status: Active Protocol: Document 09/27/18 15:36 AMB (Rec: 09/27/18 15:49 AMB [email or web address]) Balance Tests Single Limb Standing Single Limb- Right 5 sec Single Limb- Left 10 sec PT-OP-J Posture/Palpation/Skin Start: 09/27/18 07:32 Freq: Status: Active Protocol: Document 09/27/18 15:36 AMB (Rec: 09/27/18 15:49 AMB [email or web address]) Posture Evaluation Comments Posture Comments Forward head, forward shoulder posture Palpation Assessment Location One Palpation Location L shoulder Palpation Findings Tenderness Palpation Details No tenderness at biceps tendon or lateral point of shoulder, tenderness at muscle belly of rhomboids and supraspinatus PT-OP-K Range of Motion Start: 09/27/18 07:32 Freq: Status: Active Protocol: Document 09/27/18 15:36 AMB (Rec: 09/27/18 15:49 AMB [email or web address]) Shoulder Goniometric Range of Motion Shoulder Measured in Degrees Right Active Flexion 155 Internal Rotation Behind Back (text) t12 Left Active Flexion 140 Internal Rotation Behind Back (text) cramping to T12 PT-OP-L Special Tests Start: 09/27/18 16:13 Freq: Status: Active Protocol: Document 09/27/18 11:15 AMB (Rec: 09/27/18 16:13 AMB [email or web address]) Special Tests Shoulder Special Tests Neer Impingement Test Results negative bilaterally Malin Neftaly Impingement Test Results mild positive on left PT-OP-M Strength Start: 09/27/18 07:32 Freq: Status: Active Protocol: Document 09/27/18 15:36 AMB (Rec: 09/27/18 15:49 AMB [email or web address]) Shoulder Strength Shoulder Manual Muscle Testing Right Flexion 5 Normal Extension 5 Normal Abduction (C5) 5 Normal External Rotation 5 Normal Internal Rotation 5 Normal Left Flexion 5 Normal Extension 5 Normal Abduction (C5) 4 Good External Rotation 4 Good Internal Rotation 5 Normal PT-OP-O Vestibular Start: 09/27/18 07:32 Freq: Status: Active Protocol: Document 09/27/18 11:15 AMB (Rec: 09/27/18 15:52 AMB [email or web address]) Vestibular Assessment Visual Testing Smooth Pursuits Horizontal WNL Smooth Pursuits Vertical WNL Gaze Evoked Nystagmus With Fixation Negative Thrust Head Positive Left DVA (Line Degradation) 2 Vestibulo-Ocular Reflex (VOR1) Positive Positional Testing Kerry-Hallpike Negative Left Negative Right Comments Vestibular Comments Pt reports self treatment with what sounds like the Hola years ago which was helpful. Reports sensitivity to light but not necessarily sound. PT-OP-Q Treatments Start: 09/27/18 07:32 Freq: Status: Active Protocol: Document 11/09/18 13:45 AMB (Rec: 11/09/18 14:07 AMB [id number]) Gym Equipment Shuttle Balance 1 Comments RED, WBOS, then modified tandem with VOR Therapeutic Exercises Standing Exercises 2 Standing Exercise Name doorway stretch Reps/Minutes 30x2 Manual Therapy Treatment Soft Tissue Mobilization 1 Body Location neck Mobilization Type Myofascial Release Comments suboccipitals, L paraspinals Neuro Re-Education Treatment Vestibular Rehabilitation Other- 1 Details walking with head turns VOR Retraining Details lateral Comments semitandem PT-OP-R Modalities Start: 09/27/18 07:32 Freq: Status: Active Protocol: Document 11/09/18 13:45 AMB (Rec: 11/10/18 10:17 AMB [email or web address]) Spinal Traction Traction Treatment Cervical Method Static Patient Position Hooklying Force Applied (Pounds) 22 PT-OP-T Assessment and Plan Start: 09/27/18 07:32 Freq: Status: Active Protocol: Document 11/09/18 13:45 AMB (Rec: 11/09/18 14:07 AMB [id number]) Physical Therapy Assessment Assessment Summary Assessment Pt did better with increased force of traction. Overall shows good improvement, but not quite 100%. Pt notices improvement in sx after PT for about a week, but then sx start returning, so traction unit would be helpful to keep sx in check so that patient does not need to continue PT indefinitely. Physical Therapy Plan Next Visit Focus/Plan Next Note Type Treatment Note Next Visit Plan Can try mechanical traction if pt continues to notice improvement.
--- NOTE | 2018-11-16 16:32 | PT.OTN ---
Current Diagnoses Benign paroxysmal vertigo, bilateral (11/16/18) Pain in left shoulder (11/16/18) Pain in unspecified shoulder (11/16/18) Physical Therapy Treatment Note PT-OP-A Visit Information Start: 09/27/18 07:32 Freq: Status: Active Protocol: Document 11/16/18 13:45 AMB (Rec: 11/16/18 16:31 AMB [email or web address]) Out-Patient Physical Therapy Visit Information Visit Information Visit Type Treatment Note Visit Start Time 13:45 Visit Stop Time 14:30 Total Visit Minutes 45 Visit Number 6 PT-OP-B Current Condition Start: 09/27/18 07:32 Freq: Status: Active Protocol: Document 09/27/18 11:15 AMB (Rec: 09/27/18 15:35 AMB [email or web address]) Current Condition History of Current Condition Onset Date 6 months ago Current Complaints Dizziness and L shoulder/ scapular pain History of Current Condition José Miguel attends physical therapy with chronic dizziness worse in the last 6 months. He notes that looking down, blowing his nose and sinus pressure all increase his symptoms. He does report L ear fullness/pressure, and chronic sinus issues with a recent cold, but the ear pressure was before that. He is also concerned about his chronic L shoulder pain. He reports 15 years ago he was moving a big screen TV down stairs and it fell out of the other person's hands and he caught it and his shoulder has been a problem. Prior Functional Status Baseline Function- ADL's Independent Baseline Function- Mobility Independent Current Functional Impairments (Reported) Functional Limitations- ADL's Difficulty with overhead lifting with L arm. Careful picking up his children due to looking/bending down. Personal Factors Other Personal Factors That May Effect Back pain, headaches, history Therapy/Recovery of tonsil and septum surgery. PT-OP-C Subjective Start: 09/27/18 07:32 Freq: Status: Active Protocol: Document 11/16/18 13:45 AMB (Rec: 11/16/18 16:31 AMB [email or web address]) OP-PT Subjective Patient Comments Patient Comments Pt reports this week has been good. PT-OP-D Balance Start: 09/27/18 07:32 Freq: Status: Active Protocol: Document 09/27/18 15:36 AMB (Rec: 09/27/18 15:49 AMB [email or web address]) Balance Tests Single Limb Standing Single Limb- Right 5 sec Single Limb- Left 10 sec PT-OP-J Posture/Palpation/Skin Start: 09/27/18 07:32 Freq: Status: Active Protocol: Document 09/27/18 15:36 AMB (Rec: 09/27/18 15:49 AMB [email or web address]) Posture Evaluation Comments Posture Comments Forward head, forward shoulder posture Palpation Assessment Location One Palpation Location L shoulder Palpation Findings Tenderness Palpation Details No tenderness at biceps tendon or lateral point of shoulder, tenderness at muscle belly of rhomboids and supraspinatus PT-OP-K Range of Motion Start: 09/27/18 07:32 Freq: Status: Active Protocol: Document 09/27/18 15:36 AMB (Rec: 09/27/18 15:49 AMB [email or web address]) Shoulder Goniometric Range of Motion Shoulder Measured in Degrees Right Active Flexion 155 Internal Rotation Behind Back (text) t12 Left Active Flexion 140 Internal Rotation Behind Back (text) cramping to T12 PT-OP-L Special Tests Start: 09/27/18 16:13 Freq: Status: Active Protocol: Document 09/27/18 11:15 AMB (Rec: 09/27/18 16:13 AMB [email or web address]) Special Tests Shoulder Special Tests Neer Impingement Test Results negative bilaterally Malin Neftaly Impingement Test Results mild positive on left PT-OP-M Strength Start: 09/27/18 07:32 Freq: Status: Active Protocol: Document 09/27/18 15:36 AMB (Rec: 09/27/18 15:49 AMB [email or web address]) Shoulder Strength Shoulder Manual Muscle Testing Right Flexion 5 Normal Extension 5 Normal Abduction (C5) 5 Normal External Rotation 5 Normal Internal Rotation 5 Normal Left Flexion 5 Normal Extension 5 Normal Abduction (C5) 4 Good External Rotation 4 Good Internal Rotation 5 Normal PT-OP-O Vestibular Start: 09/27/18 07:32 Freq: Status: Active Protocol: Document 09/27/18 11:15 AMB (Rec: 09/27/18 15:52 AMB [email or web address]) Vestibular Assessment Visual Testing Smooth Pursuits Horizontal WNL Smooth Pursuits Vertical WNL Gaze Evoked Nystagmus With Fixation Negative Thrust Head Positive Left DVA (Line Degradation) 2 Vestibulo-Ocular Reflex (VOR1) Positive Positional Testing Kerry-Hallpike Negative Left Negative Right Comments Vestibular Comments Pt reports self treatment with what sounds like the Hola years ago which was helpful. Reports sensitivity to light but not necessarily sound. PT-OP-Q Treatments Start: 09/27/18 07:32 Freq: Status: Active Protocol: Document 11/16/18 13:45 AMB (Rec: 11/16/18 16:31 AMB [email or web address]) Neuro Re-Education Treatment Balance Activities 3 Details tandem EC 2 Details foam balance Comments EO/EC Vestibular Rehabilitation Other- 1 Details walking with head turns VOR Retraining Details lateral Comments semitandem PT-OP-R Modalities Start: 09/27/18 07:32 Freq: Status: Active Protocol: Document 11/16/18 13:45 AMB (Rec: 11/16/18 16:31 AMB [email or web address]) Spinal Traction Traction Treatment Cervical Method Static Patient Position Hooklying Force Applied (Pounds) 26 PT-OP-T Assessment and Plan Start: 09/27/18 07:32 Freq: Status: Active Protocol: Document 11/16/18 13:45 AMB (Rec: 11/16/18 16:31 AMB [email or web address]) Physical Therapy Assessment Goals Two Impairment Dizziness Short Term Goal (STG) The patient will walk with vertical head turns without symptoms. STG Duration 6 weeks Shelter Goal (LTG) The patient will turn his head quickly without symptoms. LTG Duration 12 weeks One Impairment Shoulder AROM Short Term Goal (STG) The patient will increase his flexion AROM on the L to 150 degrees. STG Duration 6 weeks Shelter Goal (LTG) The patient will reach behind his back without shoulder/ scapular pain. LTG Duration 12 weeks Assessment Summary Assessment Pt was able to tolerate sharpened [place], which he was unable to do when he had a cold. The patient felt more lightheaded with foam and eyes closed, and continues to veer with vertical head turns. Overall working on his neck stiffness on the left has improved his dizziness about 50%. Physical Therapy Plan Frequency and Duration Frequency of Treatment 1x/Week Duration of Treatment 12 weeks Plan of Care Start Date 09/27/18 Plan of Care End Date 12/20/18 Next Visit Focus/Plan Next Note Type Treatment Note Next Visit Plan Can try mechanical traction if pt continues to notice improvement.
--- NOTE | 2018-11-23 15:42 | PT.OTN ---
Current Diagnoses Benign paroxysmal vertigo, bilateral (11/23/18) Pain in left shoulder (11/23/18) Pain in unspecified shoulder (11/23/18) Physical Therapy Treatment Note PT-OP-A Visit Information Start: 09/27/18 07:32 Freq: Status: Active Protocol: Document 11/23/18 13:45 AMB (Rec: 11/24/18 08:13 AMB [email or web address]) Out-Patient Physical Therapy Visit Information Visit Information Visit Type Treatment Note Visit Start Time 13:45 Visit Stop Time 14:30 Total Visit Minutes 45 Visit Number 7 PT-OP-B Current Condition Start: 09/27/18 07:32 Freq: Status: Active Protocol: Document 09/27/18 11:15 AMB (Rec: 09/27/18 15:35 AMB [email or web address]) Current Condition History of Current Condition Onset Date 6 months ago Current Complaints Dizziness and L shoulder/ scapular pain History of Current Condition José Miguel attends physical therapy with chronic dizziness worse in the last 6 months. He notes that looking down, blowing his nose and sinus pressure all increase his symptoms. He does report L ear fullness/pressure, and chronic sinus issues with a recent cold, but the ear pressure was before that. He is also concerned about his chronic L shoulder pain. He reports 15 years ago he was moving a big screen TV down stairs and it fell out of the other person's hands and he caught it and his shoulder has been a problem. Prior Functional Status Baseline Function- ADL's Independent Baseline Function- Mobility Independent Current Functional Impairments (Reported) Functional Limitations- ADL's Difficulty with overhead lifting with L arm. Careful picking up his children due to looking/bending down. Personal Factors Other Personal Factors That May Effect Back pain, headaches, history Therapy/Recovery of tonsil and septum surgery. PT-OP-C Subjective Start: 09/27/18 07:32 Freq: Status: Active Protocol: Document 11/23/18 13:45 AMB (Rec: 11/24/18 08:13 AMB [email or web address]) OP-PT Subjective Patient Comments Patient Comments Pt reporting a worse week, which he blames on his allergies. He states he has had his allergies for his whole adult life, but a few years ago, a bad allergy day did not worsen his balance. He feels like he is walking on a dock all day today. PT-OP-D Balance Start: 09/27/18 07:32 Freq: Status: Active Protocol: Document 09/27/18 15:36 AMB (Rec: 09/27/18 15:49 AMB [email or web address]) Balance Tests Single Limb Standing Single Limb- Right 5 sec Single Limb- Left 10 sec PT-OP-J Posture/Palpation/Skin Start: 09/27/18 07:32 Freq: Status: Active Protocol: Document 09/27/18 15:36 AMB (Rec: 09/27/18 15:49 AMB [email or web address]) Posture Evaluation Comments Posture Comments Forward head, forward shoulder posture Palpation Assessment Location One Palpation Location L shoulder Palpation Findings Tenderness Palpation Details No tenderness at biceps tendon or lateral point of shoulder, tenderness at muscle belly of rhomboids and supraspinatus PT-OP-K Range of Motion Start: 09/27/18 07:32 Freq: Status: Active Protocol: Document 09/27/18 15:36 AMB (Rec: 09/27/18 15:49 AMB [email or web address]) Shoulder Goniometric Range of Motion Shoulder Measured in Degrees Right Active Flexion 155 Internal Rotation Behind Back (text) t12 Left Active Flexion 140 Internal Rotation Behind Back (text) cramping to T12 PT-OP-L Special Tests Start: 09/27/18 16:13 Freq: Status: Active Protocol: Document 09/27/18 11:15 AMB (Rec: 09/27/18 16:13 AMB [email or web address]) Special Tests Shoulder Special Tests Neer Impingement Test Results negative bilaterally Malin Neftaly Impingement Test Results mild positive on left PT-OP-M Strength Start: 09/27/18 07:32 Freq: Status: Active Protocol: Document 09/27/18 15:36 AMB (Rec: 09/27/18 15:49 AMB [email or web address]) Shoulder Strength Shoulder Manual Muscle Testing Right Flexion 5 Normal Extension 5 Normal Abduction (C5) 5 Normal External Rotation 5 Normal Internal Rotation 5 Normal Left Flexion 5 Normal Extension 5 Normal Abduction (C5) 4 Good External Rotation 4 Good Internal Rotation 5 Normal PT-OP-O Vestibular Start: 09/27/18 07:32 Freq: Status: Active Protocol: Document 09/27/18 11:15 AMB (Rec: 09/27/18 15:52 AMB [email or web address]) Vestibular Assessment Visual Testing Smooth Pursuits Horizontal WNL Smooth Pursuits Vertical WNL Gaze Evoked Nystagmus With Fixation Negative Thrust Head Positive Left DVA (Line Degradation) 2 Vestibulo-Ocular Reflex (VOR1) Positive Positional Testing [place]-Hallpike Negative Left Negative Right Comments Vestibular Comments Pt reports self treatment with what sounds like the Hola years ago which was helpful. Reports sensitivity to light but not necessarily sound. PT-OP-Q Treatments Start: 09/27/18 07:32 Freq: Status: Active Protocol: Document 11/23/18 13:45 AMB (Rec: 11/24/18 15:40 AMB [email or web address]) Gym Equipment Shuttle Balance 1 Comments RED, WBOS, then modified tandem with VOR Manual Therapy Treatment Soft Tissue Mobilization 1 Body Location neck Mobilization Type Myofascial Release Comments suboccipitals, L paraspinals Manual Traction Cervical Body Position Hooklying Neuro Re-Education Treatment Vestibular Rehabilitation VOR Retraining Details lateral/ vertical Comments semitandem PT-OP-R Modalities Start: 09/27/18 07:32 Freq: Status: Active Protocol: Document 11/23/18 13:45 AMB (Rec: 11/24/18 15:40 AMB [email or web address]) Spinal Traction Traction Treatment Cervical Method Static Patient Position Hooklying Force Applied (Pounds) 26 Duration of Treatment (Minutes) 12 PT-OP-T Assessment and Plan Start: 09/27/18 07:32 Freq: Status: Active Protocol: Document 11/23/18 13:45 AMB (Rec: 11/24/18 15:40 AMB [email or web address]) Physical Therapy Assessment Assessment Summary Assessment Pt had more difficulty with looking up today, continues to feel ears pop with cervical soft tissue work. Physical Therapy Plan Next Visit Focus/Plan Next Note Type Treatment Note Next Visit Plan Continue to progress dynamic balance, with cervical mobility
--- NOTE | 2018-12-02 14:48 | PT.OTN ---
Current Diagnoses Benign paroxysmal vertigo, bilateral (12/02/18) Pain in left shoulder (12/02/18) Pain in unspecified shoulder (12/02/18) Physical Therapy Treatment Note PT-OP-A Visit Information Start: 09/27/18 07:32 Freq: Status: Active Protocol: Document 12/02/18 13:45 AMB (Rec: 12/02/18 14:48 AMB [email or web address]) Out-Patient Physical Therapy Visit Information Visit Information Visit Type Treatment Note Visit Start Time 13:45 Visit Stop Time 14:30 Total Visit Minutes 45 Visit Number 8 PT-OP-B Current Condition Start: 09/27/18 07:32 Freq: Status: Active Protocol: Document 09/27/18 11:15 AMB (Rec: 09/27/18 15:35 AMB [email or web address]) Current Condition History of Current Condition Onset Date 6 months ago Current Complaints Dizziness and L shoulder/ scapular pain History of Current Condition José Miguel attends physical therapy with chronic dizziness worse in the last 6 months. He notes that looking down, blowing his nose and sinus pressure all increase his symptoms. He does report L ear fullness/pressure, and chronic sinus issues with a recent cold, but the ear pressure was before that. He is also concerned about his chronic L shoulder pain. He reports 15 years ago he was moving a big screen TV down stairs and it fell out of the other person's hands and he caught it and his shoulder has been a problem. Prior Functional Status Baseline Function- ADL's Independent Baseline Function- Mobility Independent Current Functional Impairments (Reported) Functional Limitations- ADL's Difficulty with overhead lifting with L arm. Careful picking up his children due to looking/bending down. Personal Factors Other Personal Factors That May Effect Back pain, headaches, history Therapy/Recovery of tonsil and septum surgery. PT-OP-C Subjective Start: 09/27/18 07:32 Freq: Status: Active Protocol: Document 12/02/18 13:45 AMB (Rec: 12/02/18 14:48 AMB [email or web address]) OP-PT Subjective Patient Comments Patient Comments Pt has been doing better. Taking Claritin every day is helping. PT-OP-D Balance Start: 09/27/18 07:32 Freq: Status: Active Protocol: Document 09/27/18 15:36 AMB (Rec: 09/27/18 15:49 AMB [email or web address]) Balance Tests Single Limb Standing Single Limb- Right 5 sec Single Limb- Left 10 sec PT-OP-J Posture/Palpation/Skin Start: 09/27/18 07:32 Freq: Status: Active Protocol: Document 09/27/18 15:36 AMB (Rec: 09/27/18 15:49 AMB [email or web address]) Posture Evaluation Comments Posture Comments Forward head, forward shoulder posture Palpation Assessment Location One Palpation Location L shoulder Palpation Findings Tenderness Palpation Details No tenderness at biceps tendon or lateral point of shoulder, tenderness at muscle belly of rhomboids and supraspinatus PT-OP-K Range of Motion Start: 09/27/18 07:32 Freq: Status: Active Protocol: Document 09/27/18 15:36 AMB (Rec: 09/27/18 15:49 AMB [email or web address]) Shoulder Goniometric Range of Motion Shoulder Measured in Degrees Right Active Flexion 155 Internal Rotation Behind Back (text) t12 Left Active Flexion 140 Internal Rotation Behind Back (text) cramping to T12 PT-OP-L Special Tests Start: 09/27/18 16:13 Freq: Status: Active Protocol: Document 09/27/18 11:15 AMB (Rec: 09/27/18 16:13 AMB [email or web address]) Special Tests Shoulder Special Tests Neer Impingement Test Results negative bilaterally Malin Neftaly Impingement Test Results mild positive on left PT-OP-M Strength Start: 09/27/18 07:32 Freq: Status: Active Protocol: Document 09/27/18 15:36 AMB (Rec: 09/27/18 15:49 AMB [email or web address]) Shoulder Strength Shoulder Manual Muscle Testing Right Flexion 5 Normal Extension 5 Normal Abduction (C5) 5 Normal External Rotation 5 Normal Internal Rotation 5 Normal Left Flexion 5 Normal Extension 5 Normal Abduction (C5) 4 Good External Rotation 4 Good Internal Rotation 5 Normal PT-OP-O Vestibular Start: 09/27/18 07:32 Freq: Status: Active Protocol: Document 09/27/18 11:15 AMB (Rec: 09/27/18 15:52 AMB [email or web address]) Vestibular Assessment Visual Testing Smooth Pursuits Horizontal WNL Smooth Pursuits Vertical WNL Gaze Evoked Nystagmus With Fixation Negative Thrust Head Positive Left DVA (Line Degradation) 2 Vestibulo-Ocular Reflex (VOR1) Positive Positional Testing [place]-Hallpike Negative Left Negative Right Comments Vestibular Comments Pt reports self treatment with what sounds like the Hola years ago which was helpful. Reports sensitivity to light but not necessarily sound. PT-OP-Q Treatments Start: 09/27/18 07:32 Freq: Status: Active Protocol: Document 12/02/18 13:45 AMB (Rec: 12/02/18 14:48 AMB [email or web address]) Gym Equipment Shuttle Balance 1 Comments RED, A/P: WBOS, then modified tandem with VOR. Added EC, then m/l stance Manual Therapy Treatment Soft Tissue Mobilization 1 Body Location neck Mobilization Type Myofascial Release Comments suboccipitals, L paraspinals, levator scap, upper trap, Manual Traction Cervical Body Position Hooklying Neuro Re-Education Treatment Balance Activities 1 Details 3 step SLS with HT Vestibular Rehabilitation Other- 1 Details walking with head turns Comments added diagonal head turns ( more difficulty looking down and to the right). PT-OP-R Modalities Start: 09/27/18 07:32 Freq: Status: Active Protocol: Document 11/23/18 13:45 AMB (Rec: 11/24/18 15:40 AMB [email or web address]) Spinal Traction Traction Treatment Cervical Method Static Patient Position Hooklying Force Applied (Pounds) 26 Duration of Treatment (Minutes) 12 PT-OP-T Assessment and Plan Start: 09/27/18 07:32 Freq: Status: Active Protocol: Document 12/02/18 13:45 AMB (Rec: 12/02/18 14:48 AMB [email or web address]) Physical Therapy Assessment Assessment Summary Assessment Pt tends to sit slouched to the left at work, which could be perpetuating his tension on the left. Physical Therapy Plan Next Visit Focus/Plan Next Note Type Treatment Note Next Visit Plan Continue to progress dynamic balance, with cervical mobility
--- NOTE | 2018-12-13 13:58 | PT.OTN ---
Current Diagnoses Benign paroxysmal vertigo, bilateral (12/13/18) Pain in left shoulder (12/13/18) Pain in unspecified shoulder (12/13/18) Physical Therapy Treatment Note PT-OP-A Visit Information Start: 09/27/18 07:32 Freq: Status: Active Protocol: Document 12/13/18 13:00 AMB (Rec: 12/13/18 13:30 AMB [id number]) Out-Patient Physical Therapy Visit Information Visit Information Visit Type Treatment Note Visit Start Time 13:45 Visit Stop Time 14:30 Total Visit Minutes 45 Visit Number 9 PT-OP-B Current Condition Start: 09/27/18 07:32 Freq: Status: Active Protocol: Document 09/27/18 11:15 AMB (Rec: 09/27/18 15:35 AMB [email or web address]) Current Condition History of Current Condition Onset Date 6 months ago Current Complaints Dizziness and L shoulder/ scapular pain History of Current Condition José Miguel attends physical therapy with chronic dizziness worse in the last 6 months. He notes that looking down, blowing his nose and sinus pressure all increase his symptoms. He does report L ear fullness/pressure, and chronic sinus issues with a recent cold, but the ear pressure was before that. He is also concerned about his chronic L shoulder pain. He reports 15 years ago he was moving a big screen TV down stairs and it fell out of the other person's hands and he caught it and his shoulder has been a problem. Prior Functional Status Baseline Function- ADL's Independent Baseline Function- Mobility Independent Current Functional Impairments (Reported) Functional Limitations- ADL's Difficulty with overhead lifting with L arm. Careful picking up his children due to looking/bending down. Personal Factors Other Personal Factors That May Effect Back pain, headaches, history Therapy/Recovery of tonsil and septum surgery. PT-OP-C Subjective Start: 09/27/18 07:32 Freq: Status: Active Protocol: Document 12/13/18 13:00 AMB (Rec: 12/13/18 13:30 AMB [id number]) OP-PT Subjective Patient Comments Patient Comments Pt noticed one slightly dizzy day last Thursday, but he used a raquetbal for self myofascial release and that helped. Feels sx are about 80% better. PT-OP-D Balance Start: 09/27/18 07:32 Freq: Status: Active Protocol: Document 09/27/18 15:36 AMB (Rec: 09/27/18 15:49 AMB [email or web address]) Balance Tests Single Limb Standing Single Limb- Right 5 sec Single Limb- Left 10 sec PT-OP-J Posture/Palpation/Skin Start: 09/27/18 07:32 Freq: Status: Active Protocol: Document 09/27/18 15:36 AMB (Rec: 09/27/18 15:49 AMB [email or web address]) Posture Evaluation Comments Posture Comments Forward head, forward shoulder posture Palpation Assessment Location One Palpation Location L shoulder Palpation Findings Tenderness Palpation Details No tenderness at biceps tendon or lateral point of shoulder, tenderness at muscle belly of rhomboids and supraspinatus PT-OP-K Range of Motion Start: 09/27/18 07:32 Freq: Status: Active Protocol: Document 09/27/18 15:36 AMB (Rec: 09/27/18 15:49 AMB [email or web address]) Shoulder Goniometric Range of Motion Shoulder Measured in Degrees Right Active Flexion 155 Internal Rotation Behind Back (text) t12 Left Active Flexion 140 Internal Rotation Behind Back (text) cramping to T12 PT-OP-L Special Tests Start: 09/27/18 16:13 Freq: Status: Active Protocol: Document 09/27/18 11:15 AMB (Rec: 09/27/18 16:13 AMB [email or web address]) Special Tests Shoulder Special Tests Neer Impingement Test Results negative bilaterally Malin Neftaly Impingement Test Results mild positive on left PT-OP-M Strength Start: 09/27/18 07:32 Freq: Status: Active Protocol: Document 09/27/18 15:36 AMB (Rec: 09/27/18 15:49 AMB [email or web address]) Shoulder Strength Shoulder Manual Muscle Testing Right Flexion 5 Normal Extension 5 Normal Abduction (C5) 5 Normal External Rotation 5 Normal Internal Rotation 5 Normal Left Flexion 5 Normal Extension 5 Normal Abduction (C5) 4 Good External Rotation 4 Good Internal Rotation 5 Normal PT-OP-O Vestibular Start: 09/27/18 07:32 Freq: Status: Active Protocol: Document 09/27/18 11:15 AMB (Rec: 09/27/18 15:52 AMB [email or web address]) Vestibular Assessment Visual Testing Smooth Pursuits Horizontal WNL Smooth Pursuits Vertical WNL Gaze Evoked Nystagmus With Fixation Negative Thrust Head Positive Left DVA (Line Degradation) 2 Vestibulo-Ocular Reflex (VOR1) Positive Positional Testing [place]-Hallpike Negative Left Negative Right Comments Vestibular Comments Pt reports self treatment with what sounds like the Hola years ago which was helpful. Reports sensitivity to light but not necessarily sound. PT-OP-Q Treatments Start: 09/27/18 07:32 Freq: Status: Active Protocol: Document 12/13/18 13:00 AMB (Rec: 12/13/18 13:40 AMB [email or web address]) Gym Equipment Shuttle Balance 1 Comments RED, A/P: WBOS, then modified tandem with VOR. Added EC, then m/l stance Manual Therapy Treatment Soft Tissue Mobilization 1 Body Location neck Mobilization Type Myofascial Release Comments suboccipitals, L paraspinals, levator scap, upper trap, Manual Traction Cervical Body Position Hooklying Neuro Re-Education Treatment Vestibular Rehabilitation Other- 1 Details walking with head turns Comments diagonal head turns VOR Retraining Details lateral/ vertical Comments semitandem- with complex background PT-OP-R Modalities Start: 09/27/18 07:32 Freq: Status: Active Protocol: Document 11/23/18 13:45 AMB (Rec: 11/24/18 15:40 AMB [email or web address]) Spinal Traction Traction Treatment Cervical Method Static Patient Position Hooklying Force Applied (Pounds) 26 Duration of Treatment (Minutes) 12 PT-OP-T Assessment and Plan Start: 09/27/18 07:32 Freq: Status: Active Protocol: Document 12/13/18 13:00 AMB (Rec: 12/13/18 13:57 AMB [email or web address]) Physical Therapy Assessment Assessment Summary Assessment Pt tolerated walking with head turns well today. Overall having a good day. Still taking claritin, but not meclizine. Physical Therapy Plan Next Visit Focus/Plan Next Note Type Treatment Note Next Visit Plan Continue to progress dynamic balance, with cervical mobility
--- NOTE | 2018-12-24 15:36 | PT.OTN ---
Current Diagnoses Benign paroxysmal vertigo, bilateral (12/24/18) Pain in left shoulder (12/24/18) Pain in unspecified shoulder (12/24/18) Physical Therapy Treatment Note PT-OP-A Visit Information Start: 09/27/18 07:32 Freq: Status: Active Protocol: Document 12/24/18 13:50 BS (Rec: 12/24/18 13:56 BS [id number]) Out-Patient Physical Therapy Visit Information Visit Information Visit Type Progress Note Visit Start Time 13:45 Visit Stop Time 14:30 Total Visit Minutes 45 Visit Number 10 PT-OP-B Current Condition Start: 09/27/18 07:32 Freq: Status: Active Protocol: Document 09/27/18 11:15 AMB (Rec: 09/27/18 15:35 AMB [email or web address]) Current Condition History of Current Condition Onset Date 6 months ago Current Complaints Dizziness and L shoulder/ scapular pain History of Current Condition José Miguel attends physical therapy with chronic dizziness worse in the last 6 months. He notes that looking down, blowing his nose and sinus pressure all increase his symptoms. He does report L ear fullness/pressure, and chronic sinus issues with a recent cold, but the ear pressure was before that. He is also concerned about his chronic L shoulder pain. He reports 15 years ago he was moving a big screen TV down stairs and it fell out of the other person's hands and he caught it and his shoulder has been a problem. Prior Functional Status Baseline Function- ADL's Independent Baseline Function- Mobility Independent Current Functional Impairments (Reported) Functional Limitations- ADL's Difficulty with overhead lifting with L arm. Careful picking up his children due to looking/bending down. Personal Factors Other Personal Factors That May Effect Back pain, headaches, history Therapy/Recovery of tonsil and septum surgery. PT-OP-C Subjective Start: 09/27/18 07:32 Freq: Status: Active Protocol: Document 12/24/18 13:50 BS (Rec: 12/24/18 13:56 BS [id number]) OP-PT Subjective Patient Comments Patient Comments Pt states he has not had any dizziness for the last 2 weeks even with worsening allergies . Patient Questionnaires Dizziness Handicap Inventory DHI Score 4 DHI Functional Impairment 1 to 19% Impaired (Score 1-19) PT-OP-D Balance Start: 09/27/18 07:32 Freq: Status: Active Protocol: Document 12/24/18 15:31 BS (Rec: 12/24/18 15:34 BS [email or web address]) Balance Tests Single Limb Standing Single Limb- Right >25 seconds Single Limb- Left >25 seconds Tandem Tandem Standing >30 seconds PT-OP-J Posture/Palpation/Skin Start: 09/27/18 07:32 Freq: Status: Active Protocol: Document 09/27/18 15:36 AMB (Rec: 09/27/18 15:49 AMB [email or web address]) Posture Evaluation Comments Posture Comments Forward head, forward shoulder posture Palpation Assessment Location One Palpation Location L shoulder Palpation Findings Tenderness Palpation Details No tenderness at biceps tendon or lateral point of shoulder, tenderness at muscle belly of rhomboids and supraspinatus PT-OP-K Range of Motion Start: 09/27/18 07:32 Freq: Status: Active Protocol: Document 12/24/18 15:31 BS (Rec: 12/24/18 15:34 BS [email or web address]) Shoulder Goniometric Range of Motion Shoulder Measured in Degrees Left Active Flexion 155 Internal Rotation Behind Back (text) no cramping Shoulder ROM Limitations Comments Gross shoulder ROM pain free and equal bilaterally. PT-OP-L Special Tests Start: 09/27/18 16:13 Freq: Status: Active Protocol: Document 09/27/18 11:15 AMB (Rec: 09/27/18 16:13 AMB [email or web address]) Special Tests Shoulder Special Tests Neer Impingement Test Results negative bilaterally Malin Neftaly Impingement Test Results mild positive on left PT-OP-M Strength Start: 09/27/18 07:32 Freq: Status: Active Protocol: Document 09/27/18 15:36 AMB (Rec: 09/27/18 15:49 AMB [email or web address]) Shoulder Strength Shoulder Manual Muscle Testing Right Flexion 5 Normal Extension 5 Normal Abduction (C5) 5 Normal External Rotation 5 Normal Internal Rotation 5 Normal Left Flexion 5 Normal Extension 5 Normal Abduction (C5) 4 Good External Rotation 4 Good Internal Rotation 5 Normal PT-OP-O Vestibular Start: 09/27/18 07:32 Freq: Status: Active Protocol: Document 09/27/18 11:15 AMB (Rec: 09/27/18 15:52 AMB [email or web address]) Vestibular Assessment Visual Testing Smooth Pursuits Horizontal WNL Smooth Pursuits Vertical WNL Gaze Evoked Nystagmus With Fixation Negative Thrust Head Positive Left DVA (Line Degradation) 2 Vestibulo-Ocular Reflex (VOR1) Positive Positional Testing Kerry-Hallpike Negative Left Negative Right Comments Vestibular Comments Pt reports self treatment with what sounds like the Hola years ago which was helpful. Reports sensitivity to light but not necessarily sound. PT-OP-Q Treatments Start: 09/27/18 07:32 Freq: Status: Active Protocol: Document 12/24/18 13:50 BS (Rec: 12/24/18 13:56 BS [id number]) Gym Equipment Shuttle Balance 2 Details Red: medial/lateral Comments WBOS, complex background with x1 and then x2 VOR. Vertical and horizontal head movements. 1 Comments RED, A/P/med/Lat: WBOS, then tandem with VOR. Slow to fast horizontal and vertical head movements. Manual Therapy Treatment Soft Tissue Mobilization 1 Body Location neck Mobilization Type Myofascial Release Comments suboccipitals, L paraspinals, levator scap, upper trap, Neuro Re-Education Treatment Balance Activities 1 Details SL balance test Comments >25 seconds bilaterally. Appropriate ankle strategies, asymptomatic. Vestibular Rehabilitation Other- 1 Details fast walking w/ head turns Comments horizontal, vertical, and diagonal head turns. No difficulty today. PT-OP-R Modalities Start: 09/27/18 07:32 Freq: Status: Active Protocol: Document 11/23/18 13:45 AMB (Rec: 11/24/18 15:40 AMB [email or web address]) Spinal Traction Traction Treatment Cervical Method Static Patient Position Hooklying Force Applied (Pounds) 26 Duration of Treatment (Minutes) 12 PT-OP-T Assessment and Plan Start: 09/27/18 07:32 Freq: Status: Active Protocol: Document 12/24/18 13:50 BS (Rec: 12/24/18 13:56 BS [id number]) Physical Therapy Assessment Goals Two Impairment Dizziness Short Term Goal (STG) The patient will walk with vertical head turns without symptoms. MET STG Duration 6 weeks Alf Goal (LTG) The patient will turn his head quickly without symptoms. MET LTG Duration 12 weeks One Impairment Shoulder AROM Short Term Goal (STG) The patient will increase his flexion AROM on the L to 150 degrees. MET STG Duration 6 weeks Alf Goal (LTG) The patient will reach behind his back without shoulder/ scapular pain. MET LTG Duration 12 weeks Assessment Summary Assessment Pt has been asymptomatic for the past 2 weeks even with worsening allergies, which normally tend to increase his dizziness. He has made improvements with VOR gaze stabilization and postural stability. Dizziness Handicap Index score imroved from 14 at IE to 4. Pt has met all established goals and will be discharged at this time. Physical Therapy Plan Next Visit Focus/Plan Next Visit Plan Pt to be discharged at this time with all goals met and asymptomatic.
== END 2019-04-27 11:30 | disposition home or self-care (01) ==
LOC: PHYS 13:45
PROVIDERS: PCP Family Medicine; Visit Provider Family Medicine
DX: H81.13 Benign paroxysmal vertigo, bilateral (principal); M25.519 Pain in unspecified shoulder; M25.512 Pain in left shoulder
CPT/HCPCS: 97012; 97110; 97112; 97140; 97162

== ENCOUNTER → 2020-08-10 10:41 | Outpatient (CLI) | payer OTHER, SELFPAY ==
--- NOTE | 2020-08-10 10:53 | DI.CT.S_ITS ---
PROCEDURE: CT SINUS SCREEN WO CON INDICATIONS: Headache,Chronic pansinusitis,Other specified disorder TECHNIQUE: Noncontrast 3.0 mm axial images acquired from the frontal sinuses to the mid-sella, with coronal and sagittal reformats. For radiation dose reduction, the following was used: automated exposure control, adjustment of mA and/or kV according to patient size. COMPARISON: [facility], CT, SINUS SCREEN WO CONTRAST, 07/24/2017, 8:55. FINDINGS: Image quality: Excellent. Sinuses: Sinuses are clear. Ostiomeatal Complexes: Ostiomeatal complexes are patent. No Jose cells. Miscellaneous: Visualized intra-orbital contents are normal. No maurice bullosa or paradoxical turbinate curvature. Mild hypertrophy of the inferior turbinates particularly on the left. Rightward nasal septal deviation, unchanged.. IMPRESSION: 1. Sinuses are clear. 2. Unchanged rightward nasa septal deviation. l Dictated by: Rosa Yates M.D. on 08/10/2020 at 11:07 Approved by: Rosa Yates M.D. on 08/10/2020 at 11:28
== END ==
PROVIDERS: PCP Family Medicine; Referring Provider Otolaryngology; Visit Provider Otolaryngology
DX: R51.9 Headache, unspecified (principal); J32.4 Chronic pansinusitis; J34.89 Other specified disorders of nose and nasal sinuses
CPT/HCPCS: 70486

== ENCOUNTER → 2020-09-28 17:40 | Outpatient (CLI) | payer OTHER, SELFPAY ==
--- NOTE | 2020-09-28 | DI.MRI.S_ITS ---
PROCEDURE: MR CERVICAL SPINE WO CON INDICATIONS: BIALTERAL SHOULDER PAIN TECHNIQUE: Noncontrast sagittal T1 spin echo and T2 fast spin echo, sagittal STIR, foraminal oblique sagittal T2 fast spin echo, and axial gradient echo or T2 fast spin echo through the cervical spine. COMPARISON: None. FINDINGS: Image quality: Excellent. Alignment and Curvature: There is normal bony alignment. Bone Marrow: Marrow demonstrates normal overall signal. Spinal Cord: Visualized spinal cord has normal size and signal. No cerebellar tonsillar herniation. Paraspinous Soft Tissues: No paravertebral masses. Prevertebral soft tissues are normal in thickness. C2-C3: Normal appearance. C3-C4: Normal appearance. C4-C5: Normal appearance. C5-C6: Normal appearance. C6-C7: Normal appearance. C7-T1: Normal appearance. IMPRESSION: 1. Negative examination. 2. No central stenosis. 3. No neural foraminal narrowing. 4. No neural compression. Dictated by: Leidy Suggs MD, PhD on 10/01/2020 at 11:17 Approved by: Leidy Suggs MD, PhD on 10/01/2020 at 11:20
--- NOTE | 2020-09-28 17:44 | DI.MRI.S_ITS ---
PROCEDURE: MR THORACIC SPINE WO CON INDICATIONS: Pain in shoulders TECHNIQUE: Noncontrast sagittal T1 spine echo and T2 fast spin echo, sagittal STIR, axial T1 and T2 fast spin echo through the thoracic spine. COMPARISON: None. FINDINGS: Image quality: Excellent. Alignment and Curvature: There is normal bony alignment. Bone Marrow: Marrow is of normal overall signal. No acute vertebral body compression fractures. Spinal Cord: Visualized spinal cord is normal in size and signal. Paraspinous Soft Tissues: No paravertebral masses. Miscellaneous: On axial images, central canal and foramina appear widely patent at all scanned levels. IMPRESSION: 1. Negative examination. 2. No central stenosis. 3. No neural foraminal narrowing. 4. No neural compression. Dictated by: Leidy Suggs MD, PhD on 10/01/2020 at 10:34 Approved by: Leidy Suggs MD, PhD on 10/01/2020 at 10:36
== END ==
PROVIDERS: PCP Family Medicine; Referring Provider Family Medicine; Visit Provider Family Medicine
DX: M25.512 Pain in left shoulder (principal); M25.511 Pain in right shoulder
CPT/HCPCS: 72141; 72146

== ENCOUNTER → 2021-02-14 14:14 | Outpatient (CLI) | payer OTHER, SELFPAY | PROVIDERS: PCP Family Medicine; Referring Provider Family Medicine; Visit Provider Family Medicine | DX: M25.519 Pain in unspecified shoulder (principal) | CPT/HCPCS: 95886; 95909 ==

== ENCOUNTER → 2024-12-28 08:02 | Outpatient (CLI) | payer OTHER, SELFPAY ==
--- NOTE | 2024-12-28 08:04 | DI.US.S_ITS ---
PROCEDURE: US ABDOMEN LIMITED INDICATIONS: Rt upper pain TECHNIQUE: Real-time scanning was performed of the abdominal and retroperitoneal organs, with image documentation. COMPARISON: [facility], CT, CT ABDOMEN WO/W CON, 12/17/2018, 6:58. [facility], US, US ABDOMEN COMPLETE, 12/01/2018, 7:58. [facility], US, US ABDOMEN COMPLETE, 03/02/2018, 13:10. FINDINGS: Liver: Liver is normal in size and homogeneous in echotexture. The parenchyma is hyperechoic. Gallbladder: Multiple gallstones, measuring less than 1 cm in size. No wall thickening. No pericholecystic edema. Negative sonographic Carrion's sign. Biliary ducts: Intrahepatic bile ducts are non-dilated. Extrahepatic bile duct caliber measures 4 mm. Normal is 6-7 mm or less in diameter, or 10 mm or less post-cholecystectomy. Pancreas: Obscured due to overlying bowel gas. Miscellaneous: No free abdominal fluid. IMPRESSION: 1. Cholelithiasis without sonographic evidence of acute cholecystitis. 2. Hepatic steatosis versus underlying hepatocellular disease. Dictated by: Genaro Rodriguez M.D. on 12/28/2024 at 12:39 Approved by: Genaro Rodriguez M.D. on 12/28/2024 at 12:40
== END ==
PROVIDERS: PCP Family Medicine; Referring Provider Family Medicine; Visit Provider Family Medicine
DX: K80.20 Calculus of gallbladder without cholecystitis without obstruction (principal); R10.11 Right upper quadrant pain
CPT/HCPCS: 76705

== ENCOUNTER 2025-02-16 19:57 | Observation (INO) | payer OTHER, SELFPAY ==
[2025-02-16] VITALS (7 sets, daily range): BP systolic 133–175; BP diastolic 88–102; PULSE 71–83; RESP 18; TEMP 36.2; O2SAT 94–96; BMI 29.9
--- NOTE | 2025-02-16 20:28 | EKG_ITS ---
[address] [address] Test Date: 2025-02-16 Pat Name: José Miguel Pinto Department: [facility] Room: Gender: Male [employer]: LORETTA WU : 1980 Requested By: Order Number: [id number] Reading MD: Neftaly Hoover Measurements Intervals Irwin Rate: 84 P: 46 OR: 160 QRS: 56 QRSD: 82 T: 45 QT: 348 QTc: 411 Interpretive Statements Normal sinus rhythm Electronically Signed On 02-18-2025 16:23:13 PDT by Neftaly Hoover
[2025-02-16 21:05] LABS: Add Manual Diff / Slide Review NO; Basophils Absolute Auto 0 /uL (0-100); Basophils Percent Auto 0.6 % (0-2); Eosinophils Absolute Auto 100 /uL (0-450); Eosinophils Percent Auto 1.4 % (2-4); Hematocrit 42.5 % (41-53); Hemoglobin 14.5 g/dL (13.5-17.5); Lymphocytes Absolute Auto 2900 /uL (1100-4500); Lymphocytes Percent Auto 36.7 % (25-40); Mean Corpuscular HGB Conc 34.2 % (30-36); Mean Corpuscular Hemoglobin 28.7 PG (26-34); Monocytes Absolute Auto 500 /uL (0-900); Monocytes Percent Auto 6.1 % (3-14); Neutrophils Absolute Auto 4300 /uL (1500-7000); Neutrophils Percent Auto 55.2 % (50-75); Platelet Count 295 X10^3/uL (150-400); Red Blood Cell Count 5.07 X10^6/uL (4.5-5.9); Red Cell Distribution Width 13.2 % (11.6-14.8); White Blood Cell Count 7.8 X10^3/uL (4.5-11.0)
--- NOTE | 2025-02-16 21:13 | DI.US.S_ITS ---
PROCEDURE: US ABDOMEN LIMITED INDICATIONS: known gallstones, increased right upper abdomen pain TECHNIQUE: Real-time scanning was performed of the abdominal and retroperitoneal organs, with image documentation. COMPARISON: [facility], CT, CT ABDOMEN PELVIS W CON, 02/16/2025, 21:53. [facility], US, US ABDOMEN LIMITED, 12/28/2024, 8:30. FINDINGS: Liver: Increased liver echogenicity with posterior attenuation, most consistent with moderate to severe steatosis. Gallbladder: Cholelithiasis. Diffuse wall thickening up to 9 mm, but the gallbladder is contracted. Positive sonographic Carrion sign. Biliary ducts: Intrahepatic bile ducts are non-dilated. Extrahepatic bile duct not well visualized. Pancreas: Not visualized due to overlying bowel gas. Miscellaneous: No free abdominal fluid. IMPRESSION: Cholelithiasis. Gallbladder is contracted, with a diffusely thickened wall . Positive sonographic Carrion sign. Trace pericholecystic edema noted on comparison CT. Findings either represent acute cholecystitis or symptomatic cholelithiasis. Surgical consultation is recommended. Hepatic steatosis. In the absence of alcohol use or other confounding factors, elevated LFTs may indicate [id number] steatohepatitis (MASH). Dictated by: Artis Carty M.D. on 02/16/2025 at 22:11 Approved by: Artis Carty M.D. on 02/16/2025 at 22:13
[2025-02-16 21:15] LABS: Alanine Aminotransferase 69 IU/L (<50); Albumin 4.6 g/dL (3.5-5.0); Albumin Globulin Ratio 1.5 (1.0-2.8); Alkaline Phosphatase 54 U/L (38-126); Aspartate Aminotransferase 50 IU/L (17-59); BUN Creatinine Ratio 18.9 (6-22); Bilirubin Total 0.5 mg/dL (0.2-1.3); Blood Urea Nitrogen 17 mg/dL (9-20); Calcium 9.2 mg/dL (8.4-10.2); Carbon Dioxide 20 mmol/L (22-32); Chloride 105 mmol/L (98-107); Estimated Glomerular Filt Rate > 60 mL/min (>60); Globulin 3.1 g/dL (1.7-4.1); Glucose 100 mg/dL (70-99); HEMOLYSIS < 15 (0-50); Lipase 71 U/L (23-300); Potassium 3.9 mmol/L (3.4-5.1); Sodium 138 mmol/L (137-145); Total Protein 7.7 g/dL (6.3-8.2)
--- NOTE | 2025-02-16 21:44 | DI.CT.S_ITS ---
PROCEDURE: CT ABDOMEN PELVIS W CON INDICATIONS: ultrasound concerning for liver mass, right upper quadrant TECHNIQUE: After the administration of intravenous contrast, axial sections acquired from the lung bases to the pubic symphysis. Coronal and sagittal reformats were performed. For radiation dose reduction, the following was used: automated exposure control, adjustment of mA and/or kV according to patient size. COMPARISON: [facility], CT, CT ABDOMEN WO/W CON, 12/17/2018, 6:58. FINDINGS: Image quality: Diagnostic. Lower Chest: No significant findings. ABDOMEN: Liver: Moderate to severe hepatic steatosis. Suspected hemangioma in segment 7 measuring 1.5 cm, similar compared with 2019. Cyst in segment 2 measuring 1.1 cm. Patent portal vein. Smooth contour. Gallbladder: Cholelithiasis. Diffuse wall thickening. Mild pericholecystic edema. Biliary ducts: No biliary dilation. Pancreas: No ductal dilation. Spleen: Size is within normal limits. Adrenal Glands: No adrenal nodules. Kidneys and Ureters: No hydronephrosis. No solid mass. No complex renal cystic lesion which requires follow up. Stomach and Bowel: Normal colonic caliber, without significant wall thickening. Normal appendix. Colonic diverticulosis without evidence of diverticulitis. Peritoneum: No abnormal intraperitoneal fluid. No free air. Ventral Wall: No significant ventral hernia. Abdominal Nodes: No retroperitoneal or mesenteric adenopathy by size criteria. Vessels: Aorta and inferior vena cava are normal in size. PELVIS: Pelvic Organs: Unremarkable. Bladder: No bladder wall thickening, accounting for underdistention. Pelvic Nodes: No enlarged lymph nodes. Miscellaneous: Small indirect inguinal hernias containing fat. Bones: No aggressive osseous abnormality. IMPRESSION: Cholelithiasis. Diffuse wall thickening with mild pericholecystic edema. Please see same day right upper quadrant ultrasound for further discussion. Benign hemangioma in segment 7 of the liver, stable since 2019. Additional benign cyst in segment 2. Dictated by: Artis Carty M.D. on 02/16/2025 at 22:13 Approved by: Artis Carty M.D. on 02/16/2025 at 22:16
--- NOTE | 2025-02-16 22:51 | ED_ITS ---
HPI - Abdominal Pain General Chief Complaint: Abdominal Pain Stated Complaint: gal bladder pain abd pain x last night Time Seen by Provider: 02/16/25 21:44 Source: patient Mode of arrival: Ambulatory History of Present Illness HPI narrative: Patient is an adult male with a history of gallstones who presents with acute onset right upper quadrant abdominal pain radiating to the right shoulder blade and axilla, which began abruptly at 12:30 AM and persisted until approximately 4:30 AM. The pain was severe enough to wake him from sleep and was described as a squeezing sensation that could not be relieved by movement, stretching, or other home remedies. He reports associated right upper quadrant tenderness and generalized abdominal soreness today, with decreased appetite and minimal oral intake since onset. He denies fever, chills, nausea, vomiting, or urinary symptoms. He notes that previous episodes of similar but less severe pain have occurred, often after eating fatty foods, but this episode was the most severe to date. He has a significant family history of gallbladder disease (multiple maternal relatives with cholecystectomy) and a grandfather with liver cancer. He has not had his gallbladder removed and has not been diagnosed with cholecystitis previously. He denies any history of cardiac disease, kidney stones, or tobacco use. Pertinent ROS: Positive for right upper quadrant pain, right shoulder blade/axilla pain, and decreased appetite. Negative for fever, chills, nausea, vomiting, chest pain, urinary symptoms, and tobacco use. Related Data Home Medications Medication Instructions Recorded Confirmed loratadine 10 mg tablet (Claritin) 10 mg PO QDAY ##0 01/29/13 03/25/18 galcanezumab-gnlm 120 mg/mL mg SUBCUT 02/16/25 subcutaneous pen injector (Emgality Pen) sodium,potassium,mag sulfates 17.5 DIRECTED 02/16/25 gram-3.13 gram-1.6 gram oral soln venlafaxine 37.5 mg 112.5 mg PO DAILY 02/16/25 02/16/25 capsule,extended release 24 hr Allergies Allergy/AdvReac Type Severity Reaction Status Date / Time No Known Drug Allergies Allergy Unverified 03/25/18 10:08 Review of Systems Review of Systems Narrative: Constitutional: no fever or chills reported, decreased appetite. HEENT: no complaints. Cardiovascular: no history of cardiac disease, no chest pain. Respiratory: no shortness of breath; clear lung sounds on exam. Gastrointestinal: right upper quadrant pain radiating to right shoulder blade, abdominal tenderness, no nausea or vomiting, decreased oral intake. Genitourinary: no dysuria, hematuria, or urinary symptoms. Musculoskeletal: no CVA tenderness, no pain over back lump. Skin: no complaints. Neurologic: no complaints. Psychiatric: no complaints. Patient History Medical History (Updated 02/17/25 @ 00:39 by Yash Trevino MD) History of tonsillitis Deviated septum Allergic rhinitis Deviated septum Tonsillitis Surgical History History of vasectomy History of nasal septoplasty History of tonsillectomy Family History Brother Gallstones Grandmother Diabetes mellitus Grandfather Cancer Social History marital status: household members: spouse and children Smoking Status: Never smoker alcohol intake: current Smoking Status: Never smoker Exam Narrative Exam Narrative: General: Alert, in no acute distress at time of exam. Skin: Good turgor, no rash, unusual bruising or prominent lesions. Head: Normocephalic, atraumatic. HEENT: Conjunctiva clear, EOM intact, PERRL, mucous membranes moist. Neck: Supple, normal ROM. Heart: Regular rate and rhythm, no murmur or gallop or rubs. Lungs: Clear to auscultation bilaterally. Abdomen: Soft, non-distended, significant tenderness to palpation in right upper quadrant, no rebound, no guarding, no epigastric tenderness, no mass or hernia. Back: Spine normal without deformity or tenderness, no CVA tenderness. Extremities: No significant edema in bilateral lower extremities, warm and well- perfused extremities, palpable radial pulses bilaterally. Neurologic: CN 2-12 normal. Normal sensation and motor exam. Psychiatric: Oriented X3, normal mood and affect. Initial Vital Signs Initial Vital Signs: Vital Signs Temperature 97.2 F L 02/16/25 20:17 Pulse Rate 83 02/16/25 20:17 Respiratory Rate 18 02/16/25 20:17 Blood Pressure 175/102 H 02/16/25 20:17 Pulse Oximetry 96 02/16/25 20:17 Oxygen Delivery Method Room Air 02/16/25 20:17 Course Orders Ordered: ED Orders 02/16/25 20:23 EKG-12 Lead Stat 02/16/25 20:35 Complete Blood Count AUTO DIFF Stat Comprehensive Metabolic Panel Stat Lipase Stat 02/16/25 21:13 US abdomen limited Stat 02/16/25 21:44 CT abdomen pelvis w con Stat 02/16/25 22:58 CXR [XR chest 1V] Stat EKG-12 Lead Stat 02/16/25 23:06 Troponin I Stat Sodium Chloride (Normal Saline 0.9%) 1,000 mls @ 125 mls/hr IV CONT JEVON Last Infusion: 02/16/25 23:50 Dose: 125 mls/hr Documented By: Admin: 02/16/25 23:27 Dose: 125 mls/hr Documented By: TRELL Morphine Sulfate (Morphine 2 Mg/Ml Inj) 2 mg IV Q4HR PRN PRN Reason: Abdominal pain Ondansetron HCl (Ondansetron 4 Mg/2 Ml Inj) 4 mg IV NOW PRN PRN Reason: Nausea And Vomiting Ondansetron HCl (Ondansetron 4 Mg Odt) 4 mg PO NOW PRN PRN Reason: Nausea And Vomiting Vital Signs Vital signs: Vital Signs - 8 hr 02/16/25 20:17 02/16/25 22:04 02/16/25 22:05 Temperature 97.2 F L Pulse Rate 83 81 Respiratory Rate 18 Blood Pressure 175/102 H Pulse Oximetry 96 96 95 Oxygen Delivery Method Room Air 02/16/25 22:05 02/16/25 22:31 02/16/25 22:31 Temperature Pulse Rate 83 Respiratory Rate Blood Pressure 137/92 H 139/88 Pulse Oximetry 94 Oxygen Delivery Method MDM - Abdominal Pain Lab Data Lab results narrative: I reviewed patient's laboratory evaluation there is no significant leukocytosis, anemia or thrombocytopenia Patient's kidney function appears to be within normal limits no significant electrolyte abnormalities requiring intervention Patient's AST, ALT not significantly elevated, lipase is not significantly elevated mild elevation in alkaline phosphatase no clear obstructive pattern identified Urinalysis negative 02/16/25 20:35 02/16/25 20:35 Labs: Lab Results 02/16/25 Range/Units 20:35 WBC 7.8 (4.5-11.0) X10^3/uL RBC 5.07 (4.5-5.9) X10^6/uL Hgb 14.5 (13.5-17.5) g/dL Hct 42.5 (41-53) % MCV 84.0 (80-100) fL MCH 28.7 (26-34) PG MCHC 34.2 (30-36) % RDW 13.2 (11.6-14.8) % Plt Count 295 (150-400) X10^3/uL Neut % (Auto) 55.2 (50-75) % Lymph % (Auto) 36.7 (25-40) % [place] % (Auto) 6.1 (3-14) % Eos % (Auto) 1.4 L (2-4) % Baso % (Auto) 0.6 (0-2) % Neut # (Auto) 4300 (8579-1087) /uL Lymph # (Auto) 2900 (4690-6894) /uL [place] # (Auto) 500 (0-900) /uL Eos # (Auto) 100 (0-450) /uL Baso # (Auto) 0 (0-100) /uL Sodium 138 (137-145) mmol/L Potassium 3.9 (3.4-5.1) mmol/L Chloride 105 (98-107) mmol/L Carbon Dioxide 20 L (22-32) mmol/L BUN 17 (9-20) mg/dL Creatinine 0.90 (0.66-1.25) mg/dL Estimated GFR > 60 (>60) mL/min BUN/Creatinine Ratio 18.9 (6-22) Glucose 100 H (70-99) mg/dL Calcium 9.2 (8.4-10.2) mg/dL Total Bilirubin 0.5 (0.2-1.3) mg/dL AST 50 (17-59) IU/L ALT 69 H (<50) IU/L Alkaline Phosphatase 54 (38-126) U/L Total Protein 7.7 (6.3-8.2) g/dL Albumin 4.6 (3.5-5.0) g/dL Globulin 3.1 (1.7-4.1) g/dL Albumin/Globulin Ratio 1.5 (1.0-2.8) Lipase 71 (23-300) U/L Point of care testing: Urine Dip Bedside Urine Glucose Negative Bedside Urine Bilirubin - Negative Bedside Urine Ketone - Negative Urine Specific Craig 1.005 Bedside Urine Occult Blood - Negative Bedside Urine pH 6.0 Bedside Urine Protein - Negative Bedside Urine Urobilinogen - Negative Bedside Urine Nitrite - Negative Bedside Urine Leukocytes - Negative Esterase Imaging Data US - abdomen: Radiologist's Impression: IMPRESSION: Cholelithiasis. Gallbladder is contracted, with a diffusely thickened wall . Positive sonographic Carrion sign. Trace pericholecystic edema noted on comparison CT. Findings either represent acute cholecystitis or symptomatic cholelithiasis. Surgical consultation is recommended. Hepatic steatosis. In the absence of alcohol use or other confounding factors, elevated LFTs may indicate [id number]-binlgautjvv-upojvwhrsl steatohepatitis (MASH). CT scan - abdomen/pelvis: My Impression: No significant free fluid or significant abnormalities Radiologist's Impression: IMPRESSION: Cholelithiasis. Diffuse wall thickening with mild pericholecystic edema. Please see same day right upper quadrant ultrasound for further discussion. Benign hemangioma in segment 7 of the liver, stable since 2019. Additional benign cyst in segment 2. Chest x-ray: Radiologist's Impression: IMPRESSION: No acute cardiopulmonary abnormality is seen. MDM Narrative Medical decision making narrative: INITIAL EVALUATION AND PLAN: - Differential diagnosis includes cholecystitis, biliary colic, and other causes of right upper quadrant pain. - Plan: - Await results of CT scan and laboratory studies - Monitor for signs of infection or obstruction - Consider general surgery consult if imaging and labs suggest cholecystitis or infection - Additional cardiac workup to evaluate for cardiac etiology - Symptomatic management as needed Differential Diagnoses: Cholecystitis, Biliary Colic, Cardiac Etiology, Choledocholithiasis, Acute Pancreatitis, Peptic Ulcer Disease, Hepatic Abscess, Diaphragmatic Irritation Complexity of Problems Addressed: 1. Patient Factors: - Acute right upper quadrant abdominal pain radiating to the right shoulder blade and axilla, associated with tenderness and decreased appetite. - History of gallstones and significant family history of gallbladder disease. - Severity of pain impacting oral intake, suggesting systemic involvement. 2. Diagnostic Complexity: - Differential diagnosis includes cholecystitis, an undiagnosed new problem with uncertain prognosis and potential for high morbidity without treatment. - Imaging and laboratory studies required to rule out infection or obstruction. 3. External Information Sources: - Family history provided by the patient, including multiple maternal relatives with cholecystectomy and a grandfather with liver cancer. - Patient's report of previous episodes of similar pain after eating fatty foods, aiding in clinical correlation. -discussed the case with Dr. Eagle of the surgery team who viewed story, imaging, labs will be admitted for cholecystectomy in the morning. NPO after midnight. Lower suspicion for pancreatitis given no significant elevation in lipase, no obstructive pathology with no significant elevation in LFTs alkaline phosphatase. Patient does not have any fevers or chills at this time considered antibiotics however while only administer if patient begins to become symptomatic. Lower suspicion for ACS as the cause of symptoms given EKG without significant elevations, clear chest x-ray and no significant chest pain. Discharge Plan Departure Patient Disposition: Admitted as Observation Clinical Impression: Cholecystitis Admit Date/Time: 02/16/25 22:58 Admit Provider: Soham Eagle
--- NOTE | 2025-02-16 22:58 | DI.RAD.S_ITS ---
PROCEDURE: XR CHEST 1V INDICATIONS: CP TECHNIQUE: One view of the chest was acquired. COMPARISON: None. FINDINGS: Surgical changes and devices: None. Lungs and pleura: Lungs are clear. No pleural effusions or pneumothorax. Mediastinum: Mediastinal contours appear normal. Heart size is normal. Bones and chest wall: No suspicious bony lesions. Overlying soft tissues appear unremarkable. IMPRESSION: No acute cardiopulmonary abnormality is seen. Dictated by: Artis Carty M.D. on 02/16/2025 at 23:15 Approved by: Artis Carty M.D. on 02/16/2025 at 23:15
[2025-02-16] MEDS: SODIUM CHLORIDE 0.9% 1,000 ML 125 ML IV (23:27)
[2025-02-16 23:39] LABS: Troponin I < 0.012 ng/mL (0.01-0.034)
[2025-02-17] VITALS (13 sets, daily range): BP systolic 86–131; BP diastolic 49–91; PULSE 68–99; RESP 13–19; TEMP 36.4–36.7; O2SAT 92–98; BMI 29.9
--- NOTE | 2025-02-17 | PATH_ITS ---
[facility] Accession Number: [id number] No. of containers..01 Tissue . 01 Material submitted: . gallbladder - GALLBLADDER . 01 Diagnosis: GALLBLADDER, CHOLECYSTECTOMY: Mild chronic calculous cholecystitis and reactive changes. Benign lymph node of cystic duct. Negative for dysplasia and malignancy. MRV 02/21/2025 1650 Local . 01 Electronically signed: . Jesus Izaguirre MD, Pathologist NPI- [id number] . 01 Gross description: . Received in formalin with two identifiers and gallbladder, is an intact gallbladder 8.2 x 2.7 x 2.5 cm with an unremarkable external surface. The cystic duct margin is inked blue, and a brown presumed lymph node candidate is identified 0.7 cm in greatest dimension that fragmented upon palpation. The margin is inked blue. The lumen contains multiple yellow bosselated calculi up to 1.5 cm in greatest dimension not grossly obstructing the cystic duct and admixed with dark green thick, sludge like bile. The mucosa is green and velvety with yellow areas of discloration and no polyps or lesions identified. The liu average 0.4 cm thick and automobile sales representative sections to include the cystic duct margin, partially fragmented lymph node candidate, and full thickness sections are submitted in cassette A1. ([id number]) /ROBYN 02/19/2025 0446 Local . 01 Pathologist provided ICD-10: K81.9 . 01 CPT . 304214 Specimen Comment: A courtesy copy of this report has been sent to [facility] Pathology Performed at: [address] [address], [place], [place] [id number] MD Shiv Rivera MD Phone: [phone]
[2025-02-17] MEDS: SODIUM CHLORIDE 0.9% 1,000 ML 125 ML IV (07:43)
--- NOTE | 2025-02-17 09:43 | PM.CN.IH.1 ---
History of Present Illness Consult details Date Patient Seen: 02/17/25 Chief complaint: gal bladder pain abd pain x last night Narrative: 44-YEAR-OLD MALE WITH SEVERAL MONTH HISTORY OF GENERALLY POSTPRANDIAL COLICKY RIGHT UPPER QUADRANT ABDOMINAL PAIN OF A SELF-LIMITED NATURE. YESTERDAY IT BECAME INCREASINGLY SEVERE AND UNRELENTING. HE PRESENTED TO THE ED WHERE IS WHITE BLOOD CELL COUNT WAS NORMAL, AND ULTRASONOGRAPHY AND CT DEMONSTRATED FINDINGS CONSISTENT WITH GALLSTONES AND ACUTE CHOLECYSTITIS. HE IS ADMITTED FOR DEFINITIVE MANAGEMENT. Meds Home Medications and Allergies Home Medications Medication Instructions Recorded Confirmed Type loratadine 10 mg tablet (Claritin) 10 mg PO QDAY ##0 01/29/13 03/25/18 History galcanezumab-gnlm 120 mg/mL mg SUBCUT 02/16/25 History subcutaneous pen injector (Emgality Pen) sodium,potassium,mag sulfates 17.5 DIRECTED 02/16/25 History gram-3.13 gram-1.6 gram oral soln venlafaxine 37.5 mg 112.5 mg PO DAILY 02/16/25 02/16/25 History capsule,extended release 24 hr Allergies Allergy/AdvReac Type Severity Reaction Status Date / Time No Known Drug Allergies Allergy Unverified 03/25/18 10:08 Review of Systems Review of Systems Narrative: COMPREHENSIVE REVIEW OF SYSTEMS NEGATIVE TO DIRECT QUESTIONING WITH THE EXCEPTION OF THE PREVIOUSLY MENTIONED CHRONIC CONDITIONS. Exam Vital Signs (past 8 hours): Oxygen Delivery Method Room Air Oxygen Flow Rate 0 Narrative Exam Narrative: IN GENERAL THIS IS A WELL-NOURISHED WELL-DEVELOPED MALE ALERT AND ORIENTED X3 IN NO ACUTE DISTRESS. HEAD IS NORMOCEPHALIC AND ATRAUMATIC. NECK IS SUPPLE. BACK IS WITHOUT CVA OR SPINOUS PROCESS TENDERNESS. LUNGS ARE CLEAR TO AUSCULTATION. CHEST IS SYMMETRIC NONTENDER WITH NORMAL INSPIRATORY AND EXPIRATORY EXCURSION. ABDOMEN IS GENERALLY SOFT WITH NORMAL BOWEL SOUNDS. RIGHT UPPER QUADRANT TENDERNESS WITH VOLUNTARY GUARDING IS IN EVIDENCE. NEUROLOGICAL EXAM IS GROSSLY NONFOCAL. SKIN IS CLEAR. THERE IS NO ADENOPATHY. EXTREMITIES MANIFESTS FULL RANGE OF MOTION. Objective Labs 02/16/25 20:35 02/16/25 20:35 Labs: Laboratory Results - last 24 hr 02/16/25 02/16/25 20:35 23:06 WBC 7.8 RBC 5.07 Hgb 14.5 Hct 42.5 MCV 84.0 MCH 28.7 MCHC 34.2 RDW 13.2 Plt Count 295 Neut % (Auto) 55.2 Lymph % (Auto) 36.7 [place] % (Auto) 6.1 Eos % (Auto) 1.4 L Baso % (Auto) 0.6 Neut # (Auto) 4300 Lymph # (Auto) 2900 [place] # (Auto) 500 Eos # (Auto) 100 Baso # (Auto) 0 Sodium 138 Potassium 3.9 Chloride 105 Carbon Dioxide 20 L BUN 17 Creatinine 0.90 Estimated GFR > 60 BUN/Creatinine Ratio 18.9 Glucose 100 H Calcium 9.2 Total Bilirubin 0.5 AST 50 ALT 69 H Alkaline Phosphatase 54 Troponin I < 0.012 Total Protein 7.7 Albumin 4.6 Globulin 3.1 Albumin/Globulin Ratio 1.5 Lipase 71 [facility] Medical History (Updated 02/17/25 @ 00:39 by Yash Trevino MD) History of tonsillitis Deviated septum Allergic rhinitis Deviated septum Tonsillitis Surgical History History of vasectomy History of nasal septoplasty History of tonsillectomy Family History Brother Gallstones Grandmother Diabetes mellitus Grandfather Cancer Social History marital status: household members: spouse and children Tobacco & Substance Use Smoking Status: Never smoker alcohol intake: current Assessment & Plan Assessment and plan (1) Cholecystitis: Status: Acute Plan I HAVE RECOMMENDED A LAPAROSCOPIC ATTEMPT AT CHOLECYSTECTOMY. ALTERNATIVES, RISKS AND BENEFITS WERE DISCUSSED IN DETAIL. QUESTIONS WERE ANSWERED. PATIENT DESIRES TO PROCEED I HAVE OUTLINED. WE WILL ACCOMMODATE HIM WHEN AN OR CAN BE MADE AVAILABLE IN A FEW HOURS. Time-Based Coding :: [TOTAL MINUTES] spent with patient and on the chart (including review of chart, obtaining history, exam, reviewing outside data, placing orders, documenting exam and treatment plan, and counseling patient) on [DATE]. PROFEE Charge Codes Inpatient or Observation consultation: [id number]
[2025-02-17] MEDS: PIPERACILLIN/TAZO 3.375 GM in SODIUM CHLORIDE 0.9% 100 ML IV (10:02)
[2025-02-17] MEDS: CEFAZOLIN 2 GM/100 ML PREMIX 100 ML IV (10:19)
[2025-02-17] MEDS: LACTATED RINGERS 1,000 ML 42 ML IV (12:39)
--- NOTE | 2025-02-17 13:34 | SUR.OPER ---
Supine on padded OR bed, head on pillow, arms secured on padded arm boards at <90 degrees abduction, legs uncrossed, safety belt at thigh, tape over blanket over lower legs.
[2025-02-17] MEDS: BUPIVACAINE 0.25% W/ EPI 30 ML VIAL INJ (14:10)
--- NOTE | 2025-02-17 14:12 | P.OP_ITS ---
Operative Date/Time/Diagnoses Date of procedure: 02/17/25 Time of procedure: 13:00 Pre-op diagnosis: Acute cholecystitis Post-op diagnosis: same Procedure & Clinicians Procedure: Laparoscopic cholecystectomy Same procedure as scheduled: Yes Indications: Acute cholecystitis with cholelithiasis Surgeon: Juan C Corcoran Mill Tender Washing: Iker Montilla Yes if Unassisted: No Anesthesia Type: General Operative Notes Findings: Cholelithiasis with chronic and acute cholecystitis Closure Type: primary Specimen(s): other (Gallbladder and contents) Estimated Blood Loss (mL): 20 Blood products transfused: none Procedure in detail: After obtaining informed consent properly identifying the patient the patient was transported to the operating room and was placed on the table in the supine position. General endotracheal anesthesia was induced and the abdomen was prepped and draped in the usual sterile manner. Time-out protocol was observed. A 3 cm curvilinear supraumbilical incision was made with a 15 blade and was carried down onto the abdominal wall fascia with electrocautery. Traction sutures of 0 Vicryl were placed on either side of midline in a peritoneotomy was made under direct vision between the traction sutures. A 12 mm Paul cannula was installed and was secured by inflating the balloon at its tip. Pneumoperitoneum was instilled and a 10 mm 30 degree angled laparoscope was passed. Three additional ports were placed under direct laparoscopic vision, 2 fingerbreadths below the right costal margin, 1 each in the following positions: Subxiphoid, midclavicular line and anterior axillary line. The gallbladder fundus was grasped and was retracted anteriorly and cephalad, and the infundibulum was retracted laterally. A combination of sharp, L hook cautery, dissection and blunt dissection with the [place] dissector was undertaken in the triangle of [place]. The cystic duct and artery were positively identified and the critical view was obtained. These structures were triply clipped and were transected between the clips nearest the gallbladder. The remainder of the procedure consisted of sharp dissection in a plane between the gallbladder wall and the gallbladder fossa which proceeded from the infundibulum towards the fundus. The final attachments were taken and the liver edge was allowed to retract. The 10 mm 30 degree angled laparoscope was withdrawn and a 5 mm scope was passed through the upper midline port. An Endo-Catch specimen extractor was passed through the Paul and the specimen was bagged under direct laparoscopic vision. The Paul balloon was deflated and the Paul, Endo-Catch and specimen were withdrawn from the supraumbilical port site as a unit. The specimen was passed from the field and the Paul was restored to its original location. The subhepatic space was copiously irrigated and all irrigant was evacuated. Hemostasis was perfect. All laparoscopic equipment was withdrawn under direct laparoscopic vision. Pneumoperitoneum was evacuated and ports were withdrawn. The supraumbilical fascial defect was closed with a running 0 Prolene stitch. Field blocks of 0.5% Marcaine were instilled into the wounds which were then closed with a series of inverted simple interrupted deep dermal 3-0 Vicryl sutures and Dermabond. The patient was transported to the recovery room extubated having tolerated the procedure well. Complications: none Post-operative Condition: stable Disposition: PACU Plan for aftercare: Transferred to acute care floor for pain management
--- NOTE | 2025-02-17 14:32 | CM.DANOTE ---
Initial DCP Assessment Note Pt is a 44 yo male, resident of [place], presents with abd pain, admitted for lap tami this afternoon with Nilo. PCP: Dr Arceo Payesme: Poncho FISHMAN Reviewed chart, patient lives independently with spouse and children. No barriers identified at this time to patient's safe discharge home w/family to assist once medically stable to do so; close outpatient f/u recommended. CM team will plan to follow clinical course closely in case any DC needs or concerns arise. AMIRA Torres Discharge Planning/Care Management CM Discharge Assessment Start: 02/16/25 23:39 Freq: Status: Active Protocol: Document 02/17/25 14:29 KAREN (Rec: 02/17/25 14:32 KAREN [id number]) Discharge Planning Assessment Assigned Data Integrity Specialist AMIRA Canas DPOA/Assigned Designee Name Ainsley Pinto, spouse Contact Information [phone] Advance Directives? No History Provided By Patient,Medical Record Has Patient been admitted in last 30 No days? Prior Living Arrangements House Household Members spouse,children Type of transporation used prior to Drives own vehicle admit Independent with ADL's Yes Is patient alert and oriented? Yes Barriers to Discharge No Discharge Plan Home Transportation Arrangement Family Referrals Initiated None needed
[2025-02-17] MEDS: LACTATED RINGERS 1,000 ML 44 ML IV (14:37)
[2025-02-17] MEDS: HYDROMORPHONE 0.5 MG INJ IV (15:36)
[2025-02-17] MEDS: HYDROCODONE/ACET 5/325 TABLET 1 TAB PO ×2 (17:12→23:19)
[2025-02-18 07:00] VITALS: O2SAT 95
--- NOTE | 2025-02-18 07:33 | PC.NURSE ---
Assumed care from NOC RN, pt resting comfortably, NS locked, ambulates independently. Reports 0/10 pain but some soreness, no nausea. Tolerating clear liquids well.
[2025-02-18] MEDS: SODIUM CHLORIDE 0.9% FLUSH 10 ML IV (08:14)
[2025-02-18] MEDS: VENLAFAXINE ER 37.5 MG CAP 112.5 MG PO (08:14)
--- NOTE | 2025-02-18 08:28 | P.PN_ITS ---
Subjective Subjective Date Patient Seen: 02/18/25 Interval history: FEELS MUCH BETTER THAN PREOPERATIVELY. HE IS TOLERANT OF LIQUID DIET. PAIN CONTROL IS ADEQUATE. Exam Vital Signs (past 8 hours): Oxygen Delivery Method Room Air Oxygen Flow Rate 0 Narrative Exam Narrative: LUNGS ARE CLEAR TO AUSCULTATION. HEART HAS A REGULAR RATE AND RHYTHM WITH NO MURMUR OR GALLOP. ABDOMEN IS SOFT, BOWEL SOUNDS ARE PRESENT. APPROPRIATE INCISIONAL TENDERNESS IS IN EVIDENCE. DRIED EXUDATE ON THE PERIUMBILICAL DRESSING. Objective Labs 02/16/25 20:35 02/16/25 20:35 [facility] Medical History (Updated 02/17/25 @ 00:39 by Yash Trevino MD) History of tonsillitis Deviated septum Allergic rhinitis Deviated septum Tonsillitis Surgical History History of vasectomy History of nasal septoplasty History of tonsillectomy Family History Brother Gallstones Grandmother Diabetes mellitus Grandfather Cancer Social History marital status: household members: spouse and children alcohol intake: current Assessment & Plan Assessment and plan (1) Cholecystitis: Status: Acute Plan ADVANCE DIET. DISCHARGE TO HOME. FOLLOW-UP 7-10 DAYS. Time-Based Coding :: [TOTAL MINUTES] spent with patient and on the chart (including review of chart, obtaining history, exam, reviewing outside data, placing orders, documenting exam and treatment plan, and counseling patient) on [DATE]. PROFEE Career Services Representative Document charge(s): No
[2025-02-18 08:35] VITALS: BP 124/85; PULSE 89; RESP 16; TEMP 36.6; O2SAT 93
--- NOTE | 2025-02-18 11:37 | CM.DPC ---
DCP Discharge Home Per Surgeon, pt tolerated procedure well and pain seems controlled and ambulating independently and tolerating advancing diet and medically stable to d/c home later today and no identified barriers to discharge. Per RN, pt has been independent in room and no concerns noted. Discharge instructions to be given Plan: Patient to d/c home today via family POV and outpt f/u and no discharge needs at this time. Please refer if indicated. AMIRA Torre
--- NOTE | 2025-02-18 13:13 | PC.NURSE ---
PIV removed, pt tolerated well. All belongings with pt. Provided pt education to pt and spouse re: activity, diet, medications, follow up, and signs of infection. Answered pt and spouse questions re: showering, aftercare, and s/s to follow up on. Pt and spouse stated all questions answered. No medication in drawer. Pt escorted to main entrace with spouse via WC by RASHARD Sal; pt's spouse driving POV.
== END 2025-02-18 13:15 | disposition home or self-care (01) ==
LOC: ED 21:44 → AC 22:59
PROVIDERS: Surgery; Admitting Provider Surgery; Emergency Provider Emergency Medicine; PCP Family Medicine; Referring Provider Emergency Medicine; Visit Provider Surgery
PROC: 0FT44ZZ Resection of Gallbladder, Percutaneous Endoscopic Approach (ICD-10-PCS; CPT 47562; principal; 2025-02-17 13:30)
DX: K80.00 Calculus of gallbladder with acute cholecystitis without obstruction (principal)
CPT/HCPCS: 47562; 36415; 71045; 74177; 76705; 80053; 81003; 83690; 84484; 85025; 93005; 96365; 96366; 96368; 96372; 96375; 96376; 99222; 99283; 99284; G0378; J0690; J1100; J1171; J1885; J2250; J2405; J2543; J2704; J3010; Q9967

== ENCOUNTER 2025-06-06 13:24 | Emergency (ER) | payer OTHER, SELFPAY ==
[2025-02-16 23:39] VITALS: BMI 29.9
[2025-06-06 13:25] VITALS: BP 132/75; PULSE 100; RESP 14; TEMP 36.6; O2SAT 97; BMI 29.9
[2025-06-06] MEDS: ONDANSETRON 4 MG/2 ML INJ IV (13:39)
[2025-06-06] MEDS: SODIUM CHLORIDE 0.9% 1,000 ML 1000 ML IV ×2 (13:41→14:59)
--- NOTE | 2025-06-06 13:45 | DI.RAD.S_ITS ---
PROCEDURE: XR CHEST 1V INDICATIONS: Chest Pain TECHNIQUE: One view of the chest was acquired. COMPARISON: [facility], CR, XR CHEST 1V, 02/16/2025, 22:55. FINDINGS: Surgical changes and devices: None. Lungs and pleura: An incomplete inspiratory result is noted, causing a crowded appearance to the lung markings. No focal infiltrates are seen. No pneumothorax or significant pleural effusions are seen. Mediastinum: Mediastinal contours appear normal. Heart size is normal. Bones and chest wall: No suspicious bony lesions. Overlying soft tissues appear unremarkable. IMPRESSION: Low lung volumes, without an acute abnormality seen by plain film. Dictated by: Uriel Kumar M.D. on 06/06/2025 at 13:28 Approved by: Uriel Kumar M.D. on 06/06/2025 at 13:29
--- NOTE | 2025-06-06 13:45 | EKG_ITS ---
[address] [address] Test Date: 2025-06-06 Pat Name: José Miguel Pinto Department: Room: Gender: Male [employer]: JESUS : 1980 Requested By: Order Number: [id number] Reading MD: Jose C Allen MD Measurements Intervals [place] Rate: 91 P: 34 [place]: 150 QRS: 63 QRSD: 82 T: 19 QT: 352 QTc: 432 Interpretive Statements Normal sinus rhythm Septal infarct , age undetermined Electronically Signed On 06-06-2025 17:15:47 PDT by Jose C Allen MD
[2025-06-06 13:54] LABS: INR 1.0 (0.9-1.3); Prothrombin Time 11.1 SECONDS (9.4-12.5)
--- NOTE | 2025-06-06 13:54 | ED.DIZZY ---
HPI - Dizziness <Sharon Wells PA-C - Last Filed: 06/06/25 19:25> General Chief Complaint: Dizziness Stated Complaint: BRIGHT,N/V,Vertigo Time Seen by Provider: 06/06/25 13:54 Source: patient Mode of arrival: EMS History of Present Illness HPI Narrative: Mr. Pinto is a pleasant 45-year-old male with a past medical history of cholecystectomy and vestibular migraine headaches who presents to the emergency department via EMS from work for headache, dizziness/vertigo, nausea and vomiting x 1 day. Patient's is at the bedside. Patient received 8 mg of Zofran and 1 L of IV fluids prior to my evaluation and reports that he is feeling slightly better but continues to have occasional retching. Patient states he has a history of migraine headaches, was last hospitalized 2 years ago for an identical migraine type headache but has been well controlled since then. He currently takes Emgality once a month in addition to daily venlafaxine and as needed meclizine and sumatriptan. He did not take any medications prior to arrival at home. Patient states he has precipitating RS symptoms of left ear pressure and left eye black spots that precipitated his migraine today, which he is experienced in the past, these symptoms have resolved. These symptoms were followed by a forehead pressure-like severe headache, nausea and vomiting and vertigo. These symptoms feel identical to his prior migraines. He denies any head trauma, fevers, abdominal pain, chest pain, lower extremity pain, numbness tingling or weakness of the extremities, facial droop, confusion. Related Data Home Medications ?Medication ?Instructions ?Recorded ?Confirmed loratadine 10 mg tablet (Claritin) 10 mg PO QDAY ##0 01/29/13 03/02/25 galcanezumab-gnlm 120 mg/mL 120 mg SUBCUT QMONTH 02/16/25 03/02/25 subcutaneous pen injector (Emgality Pen) venlafaxine 37.5 mg 112.5 mg PO DAILY 02/16/25 03/02/25 capsule,extended release 24 hr Previous Rx's ?Medication ?Instructions ?Recorded hydrocodone 5 mg-acetaminophen 325 1 tab PO Q6H PRN pain #30 tabs 02/18/25 mg tablet hydrocodone 5 mg-acetaminophen 325 1 tab PO Q6H PRN pain #30 tabs 02/18/25 mg tablet Allergies Allergy/AdvReac Type Severity Reaction Status Date / Time No Known Drug Allergies Allergy Unverified 06/06/25 13:41 Review of Systems <Sharon Wells PA-C - Last Filed: 06/06/25 19:25> Review of Systems ROS Unobtainable: All systems reviewed & are unremarkable except as noted in HPI and below Patient History <Sharon Wells PA-C - Last Filed: 06/06/25 19:25> Medical History (Updated 06/06/25 @ 18:18 by Sharon Wells PA-C) History of tonsillitis Deviated septum Allergic rhinitis Deviated septum Tonsillitis Surgical History History of vasectomy History of nasal septoplasty History of tonsillectomy Family History Brother Gallstones Grandmother Diabetes mellitus Grandfather Cancer Social History marital status: household members: spouse and children Smoking Status: Unknown if ever smoked alcohol intake: current Smoking Status: Unknown if ever smoked Exam <Sharon Wells PA-C - Last Filed: 06/06/25 19:25> Narrative Exam Narrative: GENERAL: 45 year old patient appears stated age. Well-developed patient, laying on right side, emesis bag to face, visibly uncomfortable. HEAD: Atraumatic. Normocephalic. EYES: PERRL. Extraocular motions intact. No scleral icterus. No injection or drainage. No nystagmus. ENT: Normal-appearing TMs bilaterally, no mastoid tenderness bilaterally. Nose without bleeding, purulent drainage. Throat without erythema, tonsillar hypertrophy or exudate. Airway patent. NECK: Trachea midline. Cervical ROM intact. Negative meningeal signs. CARDIOVASCULAR: Regular rate and rhythm. RESPIRATORY: ?Nonlabored respirations. ?Speaking in clear, full sentences. ?Clear to auscultation. Breath sounds equal bilaterally. No wheezes, rales, or rhonchi. ? GASTROINTESTINAL: Abdomen soft, some epigastric discomfort, no rebound or guarding. EXTREMITIES: No LE edema. NEURO: AOx3. ?Clear speech. ?Moves all 4 extremities appropriately. Sensation intact to light touch throughout face and upper and lower extremities. Facial movements are symmetric. SKIN: No rash or erythema of visible areas Initial Vital Signs Initial Vital Signs: Vital Signs Temperature 97.8 F 06/06/25 13:25 Pulse Rate 100 H 06/06/25 13:25 Respiratory Rate 14 06/06/25 13:25 Blood Pressure 132/75 06/06/25 13:25 Pulse Oximetry 97 06/06/25 13:25 Oxygen Delivery Method Room Air 06/06/25 13:25 <Kandis Cardoza DO - Last Filed: 06/09/25 07:04> Initial Vital Signs Initial Vital Signs: Vital Signs Temperature 97.8 F 06/06/25 13:25 Pulse Rate 100 H 06/06/25 13:25 Respiratory Rate 14 06/06/25 13:25 Blood Pressure 132/75 06/06/25 13:25 Pulse Oximetry 97 06/06/25 13:25 Oxygen Delivery Method Room Air 06/06/25 13:25 Course <Sharon Wells PA-C - Last Filed: 06/06/25 19:25> Orders Ordered: Discontinued Medications Dexamethasone (Dexamethasone 10 Mg/Ml Vial) 10 mg IV NOW ONE Stop: 06/06/25 14:28 Last Admin: 06/06/25 14:59 Dose: 10 mg Documented By: TRELL Diphenhydramine HCl (Diphenhydramine 50 Mg/Ml Vial) 25 mg IV NOW ONE Stop: 06/06/25 14:28 Last Admin: 06/06/25 14:58 Dose: 25 mg Documented By: TRELL Sodium Chloride (Normal Saline 0.9%) 1,000 mls @ 1,000 mls/hr IV BOLUS ONE Stop: 06/06/25 14:38 Last Infusion: 06/06/25 15:53 Dose: Infused Documented By: Admin: 06/06/25 13:41 Dose: 1,000 mls/hr Documented By: ISRAEL Sodium Chloride (Normal Saline 0.9%) 1,000 mls @ 1,000 mls/hr IV BOLUS ONE Stop: 06/06/25 15:26 Last Infusion: 06/06/25 16:56 Dose: Infused Documented By: Admin: 06/06/25 14:59 Dose: 1,000 mls/hr Documented By: DKB Ondansetron HCl (Ondansetron 4 Mg/2 Ml Inj) 4 mg IV NOW PRN PRN Reason: Nausea And Vomiting Last Admin: 06/06/25 13:39 Dose: 4 mg Documented By: ISRAEL Ondansetron HCl (Ondansetron 4 Mg Odt) 4 mg PO NOW PRN PRN Reason: Nausea And Vomiting Prochlorperazine (Prochlorperazine 10 Mg/2 Ml Vial) 10 mg IV NOW ONE Stop: 06/06/25 14:28 Last Admin: 06/06/25 14:58 Dose: 10 mg Documented By: TRELL Vital Signs Vital signs: Vital Signs - 8 hr 06/06/25 13:25 06/06/25 17:14 Temperature 97.8 F Pulse Rate 100 H 88 Respiratory Rate 14 14 Blood Pressure 132/75 102/62 Pulse Oximetry 97 98 Oxygen Delivery Method Room Air Room Air <Kandis Cardoza DO - Last Filed: 06/09/25 07:04> Orders Ordered: Discontinued Medications Dexamethasone (Dexamethasone 10 Mg/Ml Vial) 10 mg IV NOW ONE Stop: 06/06/25 14:28 Last Admin: 06/06/25 14:59 Dose: 10 mg Documented By: TRELL Diphenhydramine HCl (Diphenhydramine 50 Mg/Ml Vial) 25 mg IV NOW ONE Stop: 06/06/25 14:28 Last Admin: 06/06/25 14:58 Dose: 25 mg Documented By: TRELL Sodium Chloride (Normal Saline 0.9%) 1,000 mls @ 1,000 mls/hr IV BOLUS ONE Stop: 06/06/25 14:38 Last Infusion: 06/06/25 15:53 Dose: Infused Documented By: Admin: 06/06/25 13:41 Dose: 1,000 mls/hr Documented By: ISRAEL Sodium Chloride (Normal Saline 0.9%) 1,000 mls @ 1,000 mls/hr IV BOLUS ONE Stop: 06/06/25 15:26 Last Infusion: 06/06/25 16:56 Dose: Infused Documented By: Admin: 06/06/25 14:59 Dose: 1,000 mls/hr Documented By: TRELL Ondansetron HCl (Ondansetron 4 Mg/2 Ml Inj) 4 mg IV NOW PRN PRN Reason: Nausea And Vomiting Last Admin: 06/06/25 13:39 Dose: 4 mg Documented By: ISRAEL Ondansetron HCl (Ondansetron 4 Mg Odt) 4 mg PO NOW PRN PRN Reason: Nausea And Vomiting Prochlorperazine (Prochlorperazine 10 Mg/2 Ml Vial) 10 mg IV NOW ONE Stop: 06/06/25 14:28 Last Admin: 06/06/25 14:58 Dose: 10 mg Documented By: TRELL Vital Signs Vital signs: Vital Signs - 8 hr 06/06/25 13:25 06/06/25 17:14 Temperature 97.8 F Pulse Rate 100 H 88 Respiratory Rate 14 14 Blood Pressure 132/75 102/62 Pulse Oximetry 97 98 Oxygen Delivery Method Room Air Room Air MDM - Dizziness <Sharon Wells PA-C - Last Filed: 06/06/25 19:25> Medical Records Attestation: I reviewed the patient's medical records. Lab Data 06/06/25 13:20 06/06/25 13:20 Labs: Lab Results 06/06/25 Range/Units 13:20 WBC 12.1 H (4.5-11.0) X10^3/uL RBC 5.77 (4.5-5.9) X10^6/uL Hgb 16.3 (13.5-17.5) g/dL Hct 48.7 (41-53) % MCV 84.4 (80-100) fL MCH 28.2 (26-34) PG MCHC 33.4 (30-36) % RDW 13.6 (11.6-14.8) % Plt Count 408 H (150-400) X10^3/uL Neut % (Auto) 48.9 L (50-75) % Lymph % (Auto) 45.0 H (25-40) % Hart % (Auto) 5.0 (3-14) % Eos % (Auto) 0.7 L (2-4) % Baso % (Auto) 0.4 (0-2) % Neut # (Auto) 5900 (4319-2372) /uL Lymph # (Auto) 5400 H (1362-3026) /uL Hart # (Auto) 600 (0-900) /uL Eos # (Auto) 100 (0-450) /uL Baso # (Auto) 0 (0-100) /uL PT 11.1 (9.4-12.5) SECONDS INR 1.0 (0.9-1.3) APTT 29 (25.1-36.5) SECONDS Sodium 140 (137-145) mmol/L Potassium 4.2 (3.4-5.1) mmol/L Chloride 104 (98-107) mmol/L Carbon Dioxide 18 L (22-32) mmol/L BUN 19 (9-20) mg/dL Creatinine 1.06 (0.66-1.25) mg/dL Estimated GFR > 60 (>60) mL/min BUN/Creatinine Ratio 17.9 (6-22) Glucose 170 H (70-99) mg/dL Calcium 10.1 (8.4-10.2) mg/dL Magnesium 1.9 (1.6-2.3) mg/dL Total Bilirubin 0.5 (0.2-1.3) mg/dL AST 43 (17-59) IU/L ALT 53 H (<50) IU/L Alkaline Phosphatase 67 (38-126) U/L Total Creatine Kinase 87 (55-170) U/L Troponin I < 0.012 (0.01-0.034) ng/mL NT-Pro-B Natriuret Pep < 20 (<125) pg/mL Total Protein 8.9 H (6.3-8.2) g/dL Albumin 5.4 H (3.5-5.0) g/dL Globulin 3.5 (1.7-4.1) g/dL Albumin/Globulin Ratio 1.5 (1.0-2.8) Lipase 67 (23-300) U/L Imaging Data CT scan - head: Radiologist's Impression: PROCEDURE: CT HEAD/BRAIN WO CON INDICATIONS: severe BRIGHT w/ n/v, lightheadeness; no trauma TECHNIQUE: Noncontrast 4.5 mm thick angled axial sections acquired from the foramen magnum to the vertex, with coronal and sagittal reformats. For radiation dose reduction, the following was used: automated exposure control, adjustment of mA and/or kV according to patient size. COMPARISON: None. FINDINGS: Image quality: Diagnostic. CSF spaces: Basal cisterns are patent. No extra-axial fluid collections. Ventricles are normal in size and shape. Brain: No midline shift. No intracranial mass effect or hemorrhage. Felder-white matter interface is normal. Skull and face: Calvarium and visualized facial bones are intact, without suspicious lesions. Sinuses: Visualized sinuses and mastoids are clear. IMPRESSION: No acute intracranial pathology. Approved by: Fahad Baldwin M.D. on 06/06/2025 at 15:59 MDM Narrative Medical decision making narrative: 45-year-old male with a past medical history of cholecystectomy and vestibular migraine headaches who presents to the emergency department via EMS from work for headache, dizziness/vertigo, nausea and vomiting x 1 day. Patient describes symptoms as identical to prior vestibular migraines however he has not had one this severe in 2 years. Differential diagnosis includes but is not limited to migraine headache, electrolyte abnormality, dehydration, intracerebral mass, vertigo, etc. On exam patient is visibly uncomfortable, lying on right side with emesis bag in hand, he is nontoxic appearing has negative meningeal signs and no focal neurologic deficits however did report some black spots in the left eye vision earlier today that resolved that occur regularly with his migraine headaches. No facial asymmetry or upper or lower extremity numbness tingling or weakness. Reports that his symptoms have improved after receiving 1 L of IV fluids and 8 mg of Zofran in the field however he continues to have occasional retching. Lab work obtained in triage including EKG with a QTC of Benadryl 432. We will treat with migraine cocktail including IV fluids, Compazine, Benadryl in addition to Decadron to prevent rebound migraine. We will obtain CT imaging head given severity of migraine. Migraine/headache resolved, patient resting, CT head reveals no acute intracranial pathology. Labs reveal slightly elevated WBC count 12.1, platelets 408, slight lymphocyte predominance 45%. Leukocytosis may be reactive due to the persistent vomiting and pain patient was experiencing. Normal hemoglobin 16.3 hematocrit 48.7. Normal coags. Negative troponin. Negative BNP. Sodium 140, potassium 4.2, BUN 19 creatinine 1.06. Slight elevation in ALT 53, down from prior. Slight elevation protein albumin 8.95.4 respectively. Normal CK 87. Printed and discussed all imaging and lab work results with the patient his . His symptoms have completely resolved at this time. He can tolerate p.o. we discussed home rescue medications, states that he has everything he needs including Triptan, nausea medicine, pain medication. Discussed prompt follow up with his primary provider for further evaluation of his chronic migraine medication regimen. Discussed strict ED return precautions. Patient and verbalized understanding of all information, all questions answered, ambulatory and stable for discharge home. <Kandis Cardoza DO - Last Filed: 06/09/25 07:04> Lab Data Labs: Lab Results 06/06/25 Range/Units 13:20 WBC 12.1 H (4.5-11.0) X10^3/uL RBC 5.77 (4.5-5.9) X10^6/uL Hgb 16.3 (13.5-17.5) g/dL Hct 48.7 (41-53) % MCV 84.4 (80-100) fL MCH 28.2 (26-34) PG MCHC 33.4 (30-36) % RDW 13.6 (11.6-14.8) % Plt Count 408 H (150-400) X10^3/uL Neut % (Auto) 48.9 L (50-75) % Lymph % (Auto) 45.0 H (25-40) % Hart % (Auto) 5.0 (3-14) % Eos % (Auto) 0.7 L (2-4) % Baso % (Auto) 0.4 (0-2) % Neut # (Auto) 5900 (8291-5110) /uL Lymph # (Auto) 5400 H (7960-2877) /uL Hart # (Auto) 600 (0-900) /uL Eos # (Auto) 100 (0-450) /uL Baso # (Auto) 0 (0-100) /uL PT 11.1 (9.4-12.5) SECONDS INR 1.0 (0.9-1.3) APTT 29 (25.1-36.5) SECONDS Sodium 140 (137-145) mmol/L Potassium 4.2 (3.4-5.1) mmol/L Chloride 104 (98-107) mmol/L Carbon Dioxide 18 L (22-32) mmol/L BUN 19 (9-20) mg/dL Creatinine 1.06 (0.66-1.25) mg/dL Estimated GFR > 60 (>60) mL/min BUN/Creatinine Ratio 17.9 (6-22) Glucose 170 H (70-99) mg/dL Calcium 10.1 (8.4-10.2) mg/dL Magnesium 1.9 (1.6-2.3) mg/dL Total Bilirubin 0.5 (0.2-1.3) mg/dL AST 43 (17-59) IU/L ALT 53 H (<50) IU/L Alkaline Phosphatase 67 (38-126) U/L Total Creatine Kinase 87 (55-170) U/L Troponin I < 0.012 (0.01-0.034) ng/mL NT-Pro-B Natriuret Pep < 20 (<125) pg/mL Total Protein 8.9 H (6.3-8.2) g/dL Albumin 5.4 H (3.5-5.0) g/dL Globulin 3.5 (1.7-4.1) g/dL Albumin/Globulin Ratio 1.5 (1.0-2.8) Lipase 67 (23-300) U/L Discharge Plan Departure Patient Disposition: Home Clinical Impression: Migraine Qualifiers: Migraine type: unspecified Status migrainosus presence: without status migrainosus Intractability: not intractable Qualified Code(s): G43.909 - Migraine, unspecified, not intractable, without status migrainosus Nausea & vomiting Qualifiers: Vomiting type: unspecified Qualified Code(s): R11.2 - Nausea with vomiting, unspecified Instructions: DI for Migraine Activity Restrictions/Additional Instructions: Dear Mr. Pinto, Thank you for coming to the emergency department. Today you were evaluated for migraine headache and treated with a migraine cocktail. We discussed your lab work and imaging which was overall reassuring. I am glad that you are feeling much better. If you develop symptoms of a new migraine, please immediately take your migraine medications in addition to ibuprofen, Tylenol, nausea medication. You can also use Benadryl, electrolyte beverages to supplement. Please return to the ER if you develop any new or worsening symptoms or other concerns. Please follow up with the primary care doctor. Please follow up with your primary care doctor within the next 2-3 days for ER follow-up. (If you do not have a PCP you can call [phone]. ?to schedule an appointment with an [facility] Primary Care Provider) IF YOU DEVELOP ANY NEW OR WORSENING SYMPTOMS, RETURN TO THE ER! Please read the attached instructions, they highlight more specific treatments and interventions for you at home. Thank you for letting me participate in your care, Sharon Wells PA-C Prescriptions: No Action loratadine [Claritin] 10 MG tablet 10 mg PO QDAY Qty: 0 venlafaxine 37.5 mg capsule,extended release 24hr 112.5 mg PO DAILY Emgality Pen 120 mg/mL pen injector 120 mg SUBCUT QMONTH Patient Comments: [NO ORIGINAL SIG] hydrocodone-acetaminophen 5-325 mg tablet 1 tab PO Q6H PRN (Reason: pain) Qty: 30 0RF hydrocodone-acetaminophen 5-325 mg tablet 1 tab PO Q6H PRN (Reason: pain) Qty: 30 0RF Referrals: Ashley Arceo MD [Primary Care Provider, Family Practice] Stand Alone Forms: Patient Portal/API, Work Release Note ED Sign-out <Kandis Cardoza, DO - Last Filed: 06/09/25 07:04> Cosign ED Attending Idaature Attestation: I was available for consultation.
[2025-06-06 13:55] LABS: Add Manual Diff / Slide Review NO; Hematocrit 48.7 % (41-53); Hemoglobin 16.3 g/dL (13.5-17.5); Lymphocytes Absolute Auto 5400 /uL (1100-4500); Mean Corpuscular HGB Conc 33.4 % (30-36); Mean Corpuscular Hemoglobin 28.2 PG (26-34); Mean Corpuscular Volume 84.4 fL (80-100); Platelet Count 408 X10^3/uL (150-400)
[2025-06-06 13:57] LABS: PTT Partial Thromboplastin Tim 29 SECONDS (25.1-36.5)
[2025-06-06 14:01] LABS: Alanine Aminotransferase 53 IU/L (<50); Albumin 5.4 g/dL (3.5-5.0); Albumin Globulin Ratio 1.5 (1.0-2.8); Alkaline Phosphatase 67 U/L (38-126); Blood Urea Nitrogen 19 mg/dL (9-20); Calcium 10.1 mg/dL (8.4-10.2); Carbon Dioxide 18 mmol/L (22-32); Chloride 104 mmol/L (98-107); Creatine Kinase 87 U/L (55-170); Estimated Glomerular Filt Rate > 60 mL/min (>60); Globulin 3.5 g/dL (1.7-4.1); Glucose 170 mg/dL (70-99); HEMOLYSIS < 15 (0-50); Lipase 67 U/L (23-300); Magnesium 1.9 mg/dL (1.6-2.3); Potassium 4.2 mmol/L (3.4-5.1); Sodium 140 mmol/L (137-145); Total Protein 8.9 g/dL (6.3-8.2)
[2025-06-06 14:12] LABS: NT-proBNP (BNP-Adult 18+) < 20 pg/mL (<125); Troponin I < 0.012 ng/mL (0.01-0.034)
[2025-06-06] MEDS: PROCHLORPERAZINE 10 MG/2 ML VIAL IV (14:58)
[2025-06-06] MEDS: diphenhydrAMINE 50 MG/ML VIAL 25 MG IV (14:58)
--- NOTE | 2025-06-06 15:10 | DI.CT.S_ITS ---
PROCEDURE: CT HEAD/BRAIN WO CON INDICATIONS: severe BRIGHT w/ n/v, lightheadeness; no trauma TECHNIQUE: Noncontrast 4.5 mm thick angled axial sections acquired from the foramen magnum to the vertex, with coronal and sagittal reformats. For radiation dose reduction, the following was used: automated exposure control, adjustment of mA and/or kV according to patient size. COMPARISON: None. FINDINGS: Image quality: Diagnostic. CSF spaces: Basal cisterns are patent. No extra-axial fluid collections. Ventricles are normal in size and shape. Brain: No midline shift. No intracranial mass effect or hemorrhage. Felder- white matter interface is normal. Skull and face: Calvarium and visualized facial bones are intact, without suspicious lesions. Sinuses: Visualized sinuses and mastoids are clear. IMPRESSION: No acute intracranial pathology. Approved by: Fahad Baldwni M.D. on 06/06/2025 at 15:59
[2025-06-06 17:14] VITALS: BP 102/62; PULSE 88; RESP 14; O2SAT 98
== END 2025-06-06 18:15 | disposition home or self-care (01) ==
PROVIDERS: Emergency Medicine; Emergency Provider Physician Assistant; PCP Family Medicine
DX: G43.909 Migraine, unspecified, not intractable, without status migrainosus (principal); R11.2 Nausea with vomiting, unspecified
CPT/HCPCS: 70450; 71045; 80053; 82550; 83690; 83735; 83880; 84484; 85025; 85610; 85730; 93005; 93010; 96361; 96374; 96375; 99283; 99284; J0780; J1100; J1200; J2405